=== PATIENT | male | born 1945 | race Caucasian/White ===

== ENCOUNTER 2019-08-10 13:26 | Outpatient (CLI) | payer OTHER, SELFPAY ==
--- NOTE | ~2019-08-10 | XR_ITS ---
XR lumbar spine 2-3V DATE: 08/10/2019 13:51 INDICATION: Lumbar spine fusion procedure 2 weeks ago TECHNIQUE: AP, lateral, coned lateral lumbosacral views COMPARISON: 07/24/2013 lumbar spine FINDINGS: There is mild dextro scoliosis of lumbar spine. Status post posterior and interbody spinal fusion at L4-5. The bilateral pedicle screws and rods at L 4-5 appear intact. No fracture or displacement of the hardware. Normal alignment of the lumbar spine. No fracture or bone destruction. The included lower thoracic an d lumbar pedicles are intact. There is mild degenerative disc disease at L1-2, moderately severe degenerative disease at L2-3, L3-4 . IMPRESSION: Status post posterior and interbody spinal fusion at L4-5 Multilevel degenerative disc disease Reviewed, dictated and finalized at location A.
== END 2019-08-10 13:27 | disposition home or self-care (01) ==
PROVIDERS: PCP Emergency Medicine; Visit Provider Neurological Surgery
DX: Z98.1 Arthrodesis status (principal); M51.36 Other intervertebral disc degeneration, lumbar region
CPT/HCPCS: 72100

== ENCOUNTER → 2020-07-27 09:48 | Outpatient (CLI) | payer OTHER, SELFPAY ==
--- NOTE | ~2020-07-27 | XR_ITS ---
XR clavicle RT DATE: 07/27/2020 09:58 INDICATION: Deformity TECHNIQUE: AP and angled AP views of right clavicle COMPARISON: None FINDINGS: No fracture or dislocation, periosteal reaction or bone destruction of the right clavicle i s evident. IMPRESSION: No significant abnormality of the right clavicle Reviewed, dictated and finalized at location B.
== END ==
PROVIDERS: PCP Emergency Medicine; Visit Provider Emergency Medicine
DX: M95.8 Other specified acquired deformities of musculoskeletal system (principal)
CPT/HCPCS: 73000

== ENCOUNTER → 2020-08-17 16:37 | Outpatient (CLI) | payer OTHER, SELFPAY ==
--- NOTE | ~2020-08-17 | MR_ITS ---
EXAMINATION: MR clavicle RT wo con DATE: 08/17/2020 18:04 INDICATION: Acquired deformity of the right clavicle with tender lump at the lateral right clavicle o f 6 weeks duration. TECHNIQUE: Magnetic resonance imaging (MRI) of the right clavicle was performed without intravenous c ontrast. A marker was placed over the mass. Sequences included axial T1-weighted FSE, axial T2-weigh lisa FS FSE, coronal T1-weighted FSE, coronal T2-weighted FS FSE, sagittal T1-weighted FSE and sagitta l fluid sensitive FSE STIR. Additional larger field of view coronal T1-weighted FSE including the lupe ateral clavicles was obtained. COMPARISON: Radiographs dated 07/27/2020 FINDINGS: Bone alignment is normal. Normal marrow signal throughout with no fracture or pathologic marrow repla cing process. Moderate osteoarthritis at the right acromioclavicular joint with subchondral cystic ch deni at the lateral head of the right clavicle. The marker overlies a 1.7 x 1.7 x 1.2 cm ganglion cys t which arises from the cephalad margin of the right acromioclavicular joint which likely accounts fo r the palpable abnormality of concern. Mild right glenohumeral osteoarthritis. There appears to be mo derate supraspinatus and mild subscapularis and infraspinatus tendinopathy without discrete tear alth ough assessment of the rotator cuff tendons and the normal-appearing glenoid labrum is significantly more limited than on a standard shoulder MRI due to the larger field of view as well as some motion a rtifact. No right glenohumeral joint effusion or abnormal fluid signal in the subacromial/subdeltoid bursa to suggest bursitis. Suture anchors are seen at the greater tuberosity of the left humeral head suggesting prior left-sided fusiform aneurysm suggestive the descending thoracic aorta which on the larger field of view images measures up to 4.7 cm in diameter. Rotator cuff repair. IMPRESSION: 1. Moderate right acromion clavicular osteoarthritis with 1.7 x 1.7 x 1.2 cm ganglion cyst arising fr om the cephalad aspect of the joint space which accounts for the palpable abnormality of concern. 2. Suggestion of mild to moderate tendinopathy of the right rotator cuff although assessment is more limited than a standard shoulder MRI. 3. 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 Reviewed, dictated and finalized at location A. IMPRESSION: 1. Moderate right acromion clavicular osteoarthritis with 1.7 x 1.7 x 1.2 cm ga nglion cyst arising from the cephalad aspect of the joint space which accounts for the palpable abnormality of concern. 2. Suggestion of mild to moderate tendinopathy of the right rotator cuff althou gh assessment is more limited than a standard shoulder MRI. 3. 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
== END ==
PROVIDERS: PCP Emergency Medicine; Visit Provider Emergency Medicine
DX: M95.8 Other specified acquired deformities of musculoskeletal system (principal); I71.4 Abdominal aortic aneurysm, without rupture; M19.011 Primary osteoarthritis, right shoulder
CPT/HCPCS: 73218

== ENCOUNTER 2020-10-06 07:48 | Outpatient (CLI) | payer OTHER, SELFPAY ==
--- NOTE | 2020-10-06 08:43 | ECG_ITS ---
Measurements Intervals [place] Rate: 38 P: MT: 0 QRS: -10 QRSD: 106 T: 4 QT: 439 QTc: 352 Interpretive Statements SINUS BRADYCARDIA WITH SECOND DEGREE AV BLOCK, TYPE I VOLTAGE CRITERIA FOR LVH BASELINE ARTIFACT- I, III, AVL, AVF ABNORMAL ECG Electronically Signed On 10-06-2020 9:44:52 CDT by Woo Lagunas D.O.
[2020-10-06 09:19] LABS: Basophils Percent Auto 0.3 % (0.2-1.2); Eosinophils Absolute Auto 0.1 K/mm3 (0-0.3); Eosinophils Percent Auto 1.8 % (0-4.4); Hematocrit 42.2 % (42.0-52.0); Hemoglobin 13.8 g/dL (14.0-18.0); Immature Granulocyte Absolute 0.02 K/mm3 (0.00-0.031); Immature Granulocyte Percent A 0.3 % (0-0.5); Lymphocytes Percent Auto 30.2 % (18.3-44.2); Mean Corpuscular HGB Conc 32.7 g/dl (32-36); Mean Corpuscular Hemoglobin 30.8 pg (26-34); Mean Corpuscular Volume 94.2 fl (80-100); Mean Platelet Volume 9.8 fl (7.4-10.4); Monocytes Absolute Auto 0.6 K/mm3 (0.1-0.6); Monocytes Percent Auto 9.4 % (2.6-8.5); Neutrophils Absolute Auto 3.5 K/mm3 (1.3-6.7); Platelet Count Result 233 k/mm3 (150-375); Red Blood Count 4.48 M/mm3 (4.6-6.20); Red Cell Distribution Width 12.5 % (11.5-14.5)
[2020-10-06 09:22] LABS: Add Urine Microscopic? YES; Appearance Urine Clear (Clear); Bilirubin Urine Negative (Negative); Blood Urine Negative (Negative); Color Urine Yellow (Yellow); Glucose Urine UA Negative (Negative); Ketones Urine Negative (Negative); Leukocyte Esterase Ur Negative LEU/UL (Negative); Mucus Urine Rare /lpf; Nitrate Urine Negative (Negative); Protein Urine 1+ mg/dL (Negative); RBC Urine 0-2 /hpf (0-2); Specific Grav Ur 1.021 (1.001-1.035); Urobilinogen Urine Negative mg/dL (<2.0); WBC Urine 0-3 /hpf
[2020-10-06 09:30] LABS: INR 0.9; Prothrombin Time 11.9 Seconds (11.1-14.7)
[2020-10-06 09:31] LABS: Partial Thromboplastin Time 28.6 SECONDS (22.3-36.8)
[2020-10-06 09:44] LABS: Albumin Level 4.5 g/dL (3.5-5.1); Anion Gap 8 mmol/L (8-16); Blood Urea Nitrogen 20 mg/dL (9-20); Calcium 9.8 mg/dL (8.4-10.2); Carbon Dioxide 27 mmol/L (22-30); Chloride 101 mmol/L (98-107); Estimated Glomerular Filt Rate 60; Glucose 117 mg/dL (65-110); Potassium 4.4 mmol/L (3.4-5.0); Sodium 136 mmol/L (137-145)
[2020-10-06 11:17] LABS: Urine Cotinine NEGATIVE
== END 2020-10-06 07:49 | disposition home or self-care (01) ==
LOC: ANHSURGERY 07:51
PROVIDERS: PCP Emergency Medicine; Visit Provider Orthopaedic Surgery
DX: M17.10 Unilateral primary osteoarthritis, unspecified knee (principal); Z01.818 Encounter for other preprocedural examination; I44.1 Atrioventricular block, second degree
CPT/HCPCS: 80048; 80307; 81001; 82040; 85025; 85610; 85730; 86850; 86900; 86901; 87081; 93005

== ENCOUNTER 2020-10-06 11:14 | Outpatient (CLI) | payer OTHER, SELFPAY ==
--- NOTE | ~2020-10-06 | US_ITS ---
EXAMINATION: US right upper quadrant EXAM DATE: 10/06/2020 11:36 INDICATION: K76.9 - Liver disease, unspecified. TECHNIQUE: Multiple grayscale and Doppler images of the abdomen right upper quadrant were obtained (b y a technologist who performed the scan) and subsequently reviewed. There is no prior study for nat luther. FINDINGS: The pancreatic head and body are normal in appearance. The pancreatic tail is not visualized. The l iver has normal echogenicity and contour. There are no focal liver lesions identified. There is no evidence of intrahepatic biliary duct dilation. Portal venous flow was seen in the hepatopedal, nor mal direction and has normal Doppler waveform. No right-sided hydronephrosis. Common bile duct measures 2 mm, which is normal. The gallbladder wall is normal in thickness, with ex pected amount of distention. No sonographic evidence of pericholecystic fluid. There is no cholelit hiases. Technologist performing exam reports patient did not demonstrate sonographic Draper's sign. Please note that this sign is less reliable in patients who have received pain medication. IMPRESSION: 1. Unremarkable abdominal ultrasound exam. Reviewed, dictated and finalized at location B.
== END 2020-10-06 11:15 | disposition home or self-care (01) ==
PROVIDERS: PCP Emergency Medicine; Visit Provider Emergency Medicine
DX: K76.9 Liver disease, unspecified (principal)
CPT/HCPCS: 76705

== ENCOUNTER 2020-10-13 09:00 | Outpatient (CLI) | payer OTHER, SELFPAY ==
--- NOTE | 2020-10-13 09:05 | EST_ITS ---
Patient Info Name: Jona Silva Age: 74 years : 1945 Gender: Male Ht: 70 in Wt: 220 lbs BSA: 2.25 m2 HR: 52 bpm Technical Quality: Good Exam Date: 10/13/2020 9:44 AM Exam Location: [facility] Patient Status: Outpatient Admit Date: 10/13/2020 Staff Ordering Physician: Yuan Winn DO Cook Manager: Dolly Rangel RDCS Attending Provider: YUAN WINN DO Referring Physician: Bebo GUTHRIE; Exercise Technologist: Michelle Sky RDCS Exercise Physician: Yuan Winn DO Exam Type: CA stress echo Study Info Indications R06.00 - Dyspnea, unspecified Treadmill exercise stress echocardiogram is performed. Summary 1. 1. Negative Akin exercise stress test for ischemic ST changes by ECG criteria. 2. 2. Good functional capacity, achieving 7 METs of workload. 3. 3. Underlying intermittent second degree AV block. 4. 4. Appropriate HR response to exercise. 5. 5. Appropriate HR recovery at 1 minute post exercise. 6. 6. Negative stress echocardiogram for ischemia by wall motion analysis. 7. 7. Patient informed of the above results. Stress Echo Findings Left Ventricle Appropriate increase in LV endocardial thickening with systole. Appropriate augmentation of contractility with systole. No wall motion abnormality. Left Ventricle Normal LV systolic function, no wall motion abnormality. Protocol: Akin Stress ECG Details Stage: REST Duration (min): 0 min : 48 sec Speed (mph): 0.0 Grade (%): 0 HR (bpm): 55 SBP (mmHg): 138 DBP (mmHg): 85 METS: --- Stage: REST Duration (min): 22 min : 11 sec Speed (mph): 0.0 Grade (%): 0 HR (bpm): 69 SBP (mmHg): 138 DBP (mmHg): 85 METS: --- Stage: STAGE 1 Duration (min): 1 min : 0 sec Speed (mph): 1.7 Grade (%): 10 HR (bpm): 87 SBP (mmHg): 138 DBP (mmHg): 85 METS: --- Stage: STAGE 1 Duration (min): 2 min : 0 sec Speed (mph): 1.7 Grade (%): 10 HR (bpm): 99 SBP (mmHg): 138 DBP (mmHg): 85 METS: --- Stage: STAGE 1 Duration (min): 3 min : 0 sec Speed (mph): 1.7 Grade (%): 10 HR (bpm): 103 SBP (mmHg): 178 DBP (mmHg): 82 METS: --- Stage: STAGE 2 Duration (min): 1 min : 0 sec Speed (mph): 2.5 Grade (%): 12 HR (bpm): 113 SBP (mmHg): 178 DBP (mmHg): 82 METS: --- Stage: STAGE 2 Duration (min): 2 min : 0 sec Speed (mph): 2.5 Grade (%): 12 HR (bpm): 122 SBP (mmHg): 186 DBP (mmHg): 86 METS: --- Stage: STAGE 2 Duration (min): 3 min : 0 sec Speed (mph): 2.5 Grade (%): 12 HR (bpm): 132 SBP (mmHg): 186 DBP (mmHg): 86 METS: --- Stage: STAGE 3 Duration (min): 0 min : 1 sec Speed (mph): 0.0 Grade (%): 0 HR (bpm): 132 SBP (mmHg): 186 DBP (mmHg): 86 METS: --- Stage: RECOVERY Duration (min): 0 min : 58 sec Speed (mph): 0.0 Grade (%): 0 HR (bpm): 76 SBP (mmHg): 166 DBP (mmHg): 80 METS: --- Stage: REC
== END 2020-10-13 09:01 | disposition home or self-care (01) ==
LOC: ANHCARD 09:01
PROVIDERS: PCP Emergency Medicine; Visit Provider Internal Medicine Cardiovascular Disease
DX: R06.00 Dyspnea, unspecified (principal)
CPT/HCPCS: 93351

== ENCOUNTER 2020-10-18 01:12 | Day surgery (SDC) | payer OTHER, SELFPAY ==
[2020-10-06 08:19] VITALS: BP 154/80; PULSE 58; RESP 20; TEMP 36.3; O2SAT 97; BMI 31.3
[2020-10-18] VITALS (20 sets, daily range): BP systolic 119–178; BP diastolic 60–95; PULSE 56–84; RESP 11–20; TEMP 36–36.6; O2SAT 96–100
--- NOTE | ~2020-10-18 | XR_ITS ---
EXAMINATION: XR knee RT 2V DATE: 10/18/2020 10:10 INDICATION: Right knee arthroplasty. Postop. TECHNIQUE: 2 views of right knee were obtained. COMPARISON: Right knee radiographs 10/06/2020 FINDINGS: There is a total right knee arthroplasty without patellar resurfacing in near-anatomic alig nment. No fracture. There is gas in the knee joint and soft tissues, consistent with recent surgery. Anterior skin césar are noted. IMPRESSION: 1. Total right knee arthroplasty in near-anatomic alignment. Reviewed, dictated and finalized at location A.
[2020-10-18] MEDS: ACETAMINOPHEN 500 MG TABLET 1000 MG PO (06:55)
[2020-10-18] MEDS: LACTATED RINGERS 1,000 ML 30 ML IV CONT ×2 (07:00→09:57)
[2020-10-18] MEDS: TRANEXAMIC ACID 1,000MG/ISO100 1,000 MG/100 ML BAG 200 MG IVPB (07:03)
--- NOTE | 2020-10-18 07:15 | WPDANESEPPF ---
Anes - Initial Pre Proc Eval Procedure: Operation Date: 10/18/20 07:30 Proposed Procedures p Right Total Knee Arthroplasty - Reggie Encinas MD Date/Time: 10/18/20 07:15 Surgeon: Reggie Encinas MD Pre Op Diagnosis: Right Knee OA Patient Data Age: 74 Gender: M Height: 1.78 m Weight: 99.1 kg Last Vital Signs Temp 36.3 C L 10/06/20 08:19 Pulse 58 L 10/06/20 08:19 Resp 20 10/06/20 08:19 BP 154/80 H 10/06/20 08:19 Pulse Ox 97 10/06/20 08:19 Allergies Allergy/AdvReac Type Severity Reaction Status Date / Time No Known Allergies Allergy Verified 10/11/20 10:40 Home Medications Medication Instructions Recorded Confirmed Type sildenafil 50 mg tablet 50 mg PO DAILY PRN #30 tablet 07/27/20 10/11/20 Rx tadalafil 20 mg tablet 20 mg PO DAILY PRN #40 tablet 07/27/20 10/11/20 Rx chlorhexidine gluconate 4 % 1 applic TOPICAL ONCE #237 ml 08/03/20 10/18/20 Rx topical liquid levothyroxine 125 mcg PO QAM 10/06/20 10/18/20 History losartan 50 mg PO QAM 10/06/20 10/18/20 History rosuvastatin 20 mg HS 10/06/20 10/18/20 History triamterene-hydrochlorothiazid 1 cap PO DAILY 10/06/20 10/18/20 History turmeric root extract 1,000 mg PO DAILY 10/06/20 10/18/20 History aspirin 81 mg tablet,delayed 81 mg PO .Every other day tablet 10/11/20 10/18/20 History release mecobalamin (vitamin B12) 1,000 1,000 mcg PO DAILY 10/11/20 10/18/20 History mcg disintegrating tablet,sublingual Patient hx anesthesia problems: none Family hx anesthesia problems: none PMFSH Past Medical History Medical History Back pain Bladder cancer Degenerative joint disease of knee Diabetes mellitus HTN (hypertension) Hyperglycemia Hypothyroidism (acquired) Lumbar stenosis with neurogenic claudication Right knee pain Thoracic aortic aneurysm Urinary and fecal incontinence Vitamin B 12 deficiency Family History Family History Father Family history of congestive heart failure, Onset Age: 85 Other Family history of cardiovascular disease Hypertension Social History Social History Smoking packs per day: 2 Smoking cigarettes per day: 40.0 Years smoked: 10 Smoking pack-years: 20.00 Smoking status: Former smoker Smoking end date: 03/11/87 Additional smoking assessment comments: QUIT 1985 Alcohol intake: current Drinks per week: 3 Substance use: never Substance use type: does not use Living arrangements: with family Spiritual care concerns: No Anes - Eval Final PreProcedure Day of Procedure 10/18/20 07:15 Patient weight: obese Heart: regular rate and rhythm Lungs: decreased breath sounds Airway: Mallampati scale class II Neurological: alert and oriented Last oral intake: >/= 8 hours ASA classification: III Emergent: no Anesthetic plan: proceed Anesthesia type and monitoring: general LMA and standard monitoring Informed Consent: The patient's anesthetic plan and its attendant risks and benefits were discussed with the patient/family/POA. Questions were solicited and answers provided to the satisfaction of the patient/family/POA.
--- NOTE | 2020-10-18 07:21 | WPDHPUPDATE1 ---
History and Physical Update Update Date/Time: 10/18/20 07:21 History and Physical has been reviewed, including an updated exam of the patient. There are NO changes in the patient's condition. Risks, benefits, and alternatives have been discussed and questions answered. Patient agrees to proceed with procedure.
--- NOTE | 2020-10-18 07:33 | WPDANESPNB ---
Anes - Peripheral Nerve Block Date/Time: 10/18/20 07:33 I have discussed with the patient/family/POA the placement of a peripheral nerve block for post-operative pain management, including associated risks, benefits, complications, and side effects. Alternative methods of post-operative analgesia were detailed. Questions were solicited and answers provided to the satisfaction of the patient/family/POA. Time-Out: A pre-procedural Time-Out was completed immediately before starting the procedure and confirmed: Patient Identification, Site, Procedure, Patient Position and the Availability of Requisite Equipment. Clinical Indications: Acute post-operative pain management requested by the operative surgeon. Nerve Block Insertion Note Anes-nerve block: femoral right Patient position: supine Skin prep: chlorhexidine Needle: 22 gauge, stimulating, insulated echogenic needle. Needle length: 80 mm Technique: nerve stimulation lost at (mA) (0.27) Technique comment: Mid2mg,[id number] Injectate: bupivacaine 0.25% with epi 5 mcg/ml (30ml) Observations: tolerated well Complications: none Procedure start time:: 726 Procedure end time:: 731
--- NOTE | 2020-10-18 07:43 | SUR.PREOP ---
0710-SUMMONED TO ROOM BY , PT DEVELOPED NAUSEA AFTER STARTING TRANSEXAMIC ACID. MEDICATION STOPPED, LR RATE INCREASED WITH IMPROVEMENT IN NAUSEA. 0725-BI TRI OPERATOR AND GAS SCRUBBER OPERATOR AWARE OF ABOVE AND WILL RESTART/INFUSE IN OR.
[2020-10-18] MEDS: ceFAZolin 2 GM/D5W 50 ML 2 GM/50 ML BAG IVPB ×2 (07:48→16:05)
--- NOTE | 2020-10-18 07:52 | SUR.PREOP ---
0700-PT HAS SEAT COVER CUTTER IN PLACE SINCE 10/11/2020-DR. WHITTINGTON AWARE AND WILL CONTINUE ON TO OR.
[2020-10-18] MEDS: GENTAMICIN BONE CEMENT REFOBACIN 1 EACH TOPICAL (08:41)
--- NOTE | 2020-10-18 09:50 | W.PM.PROC2 ---
Procedure Note - Detailed Date of Procedure 10/18/20 Pre-op Diagnosis Right Knee OA Post-op Diagnosis same Procedure Performed R TKA Surgeon Reggie Encinas MD Anesthesia general Description of Procedure THE RIGHT KNEE WAS PREPPED AND DRAPED IN THE STERILE FASHION. THERE WAS A 10 DEGREE FLEXION CONTRACTURE. A MIDLINE SKIN INCISION WAS MADE. A MEDIAL PARAPATELLAR ARTHROTOMY WAS MADE. THE PATELLA WAS EVERTED. THERE WAS TRICOMPARTMENT DJD. THERE WAS MINIMAL PATELLA DJD. AN INTRAMEDULLARY KARL WAS PLACED IN THE FEMUR. A DISTAL FEMORAL CUT WAS MADE IN 5 DEGREES OF VALGUS REMOVING APPROXIMATELY 9 MM OF BONE FROM THE DISTAL FEMUR. THE FEMUR WAS SIZED TO 70. A 70 FEMORAL CUTTING BLOCK WAS PLACED IN 3 DEGREES OF EXTERNAL ROTATION AND IN ALIGNMENT WITH ELIECER'S LINE AND THE TRANSEPICONDYLAR AXIS. ANTERIOR POSTERIOR AND CHAMFER CUTS WERE MADE. THE CUTS WERE EXCELLENT. NEXT AN INTRAMEDULLARY CUTTING GUIDE WAS PLACED IN THE TIBIA. A TRANS TIBIAL CUT WAS MADE ALONG THE LONG AXIS OF THE TIBIA. APPROXIMATELY 10 MM OF BONE WAS REMOVED FROM THE HIGH SIDE OF THE TIBIA. THE TIBIA WAS THEN PLANED TO A SMOOTH SURFACE. POSTERIOR FEMORAL OSTEOPHYTES WERE REMOVED FROM THE FEMORAL CONDYLES. A 79 TIBIAL TRIAL WAS PLACED IN ALIGNMENT WITH THE 1/3 MEDIAL ASPECT OF THE TIBIAL TUBERCLE. THEN A 70 FEMORAL TRIAL COMPONENT WAS PLACED. BOTH HAD EXCELLENT FITS. EVENTUALLY A 10 MM CR POLYETHYLENE TRIAL COMPONENT WAS PLACED. THE KNEE WAS TAKEN THROUGH A RANGE OF MOTION. THE KNEE CAME OUT TO FULL EXTENSION. THERE WAS NO ABNORMAL TILT TO THE PATELLA. THERE WAS GOOD A/P AND VARUS/VALGUS STABILITY. THERE WAS NO EXCESSIVE ROLL BACK WITH FLEXION. THE TRIAL COMPONENTS WERE REMOVED. THEN A 70 FEMORAL COMPONENT AND 79 TIBIAL COMPONENT WITH A 10 CR POLYETHYLENE COMPONENT WERE CEMENTED INTO PLACE. ONCE THE CEMENT WAS HARD THE KNEE WAS TAKEN THROUGH A ROM AGAIN AND FOUND TO BE STABLE WITH NO PATELLA TILT NO EXCESSIVE ROLL BACK WITH FLEXION AND GOOD STABILITY WITH COMPLETE AND FULL EXTENSION. THE KNEE WAS IRRIGATED WITH STERILE BETADINE AND WATER FOR ABOUT 3 MINUTES. THE BLEEDERS WERE CAUTERIZED. THE ARTHROTOMY WAS REPAIRED WITH NUMBER 1 VICRYL. THE SUB CUTANEOUS LAYER WITH 2-0 VICRYL AND THE SKIN WITH AMINATA. THE WOUND WAS WASHED AND A STERILE DRESSING WAS APPLIED. PATIENT WAS EXTUBATED. Estimated Blood Loss -150.0 Pathology none sent Complications No immediate complications Condition stable Disposition PACU
[2020-10-18] MEDS: fentaNYL CITRATE INJ (*CRX) 100 MCG/2 ML VIAL 25 MCG IV PUSH ×8 (10:17→10:52)
[2020-10-18] MEDS: HYDROmorphone HCL INJ (*CRX) 1 MG/ML SYR IV PUSH (11:15)
[2020-10-18] MEDS: oxyCODONE HCL (*CRX) 5 MG TAB IR 10 MG PO ×3 (12:12→20:23)
[2020-10-18] MEDS: SODIUM CHLORIDE 0.9% IV 1,000 ML 125 ML IV CONT (12:14)
--- NOTE | 2020-10-18 12:30 | WPDCN ---
Assessment and Plan Assessment and plan (1) Arthritis of right knee: Code(s): M17.11 - Unilateral primary osteoarthritis, right knee Status: Acute Assessment and Plan: Postoperative day 0 status post right total knee replacement. Wound care and pain control will be deferred to Dr. Reid as well as DVT prophylaxis. (2) Hypertension: Code(s): I10 - Essential (primary) hypertension Status: Acute Assessment and Plan: Blood pressures were reviewed and they have been running a bit high postoperatively. Resume antihypertensives and monitor closely. (3) Hypothyroidism (acquired): Code(s): E03.9 - Hypothyroidism, unspecified Status: Acute Assessment and Plan: Continue levothyroxine. (4) Hyperlipidemia: Code(s): E78.5 - Hyperlipidemia, unspecified Status: Acute Assessment and Plan: Continue statin check LFTs in a.m. Additional Plan Thank you for allowing us to participate in this patient's care. Please do not hesitate to contact us with any questions. Supervising physician for this medical consultation is Dr. Diego Hilton. HPI Data of Consult Date/Time: 10/18/20 12:30 Requesting Physician: Reggie Encinas MD Primary Care Provider: Yomi Reddy MD Consult Narrative Narrative: This is a very pleasant 74-year-old male with arthritis, hypertension, hyperlipidemia, hypothyroidism, and prediabetes whom the hospitalist service has been consulted for management of his medical conditions postoperatively. He has had longstanding pain in his right knee (although he tells me that his arthritis is worse than his left) which has not been amenable to conservative outpatient treatment thus he elected for replacement today. His surgery was performed under general anesthesia with no immediate complications documented an estimated blood loss of 150 mL. Patient has been doing okay postoperatively but has had difficulties getting his pain under control. He currently rates his pain 7/10 and describes it as a constant aching discomfort. He has been up to the chair and did ambulate to the bathroom once with a walker without issue. He denies paresthesias, skin color, and temperature changes distal to the surgical site. He also denies postoperative fever, chills, chest pain, shortness of breath, nausea, and vomiting. Review of Systems Review of Systems: Twelve systems were reviewed with pertinent positives and negatives as per HPI. No fever, chills, or sweats. No recent cold or flu symptoms. Occasional issues starting his urine stream but no history of urinary retention. He has urinated without issue postoperatively. No history of venous thromboembolism. Except as documented, all other systems were reviewed and are negative. [facility] Past Medical History Medical History (Updated 10/18/20 @ 23:46 by Priya Galvan PA-C) Back pain Bladder cancer Degenerative joint disease of knee Hyperlipidemia Hypertension Hypothyroidism (acquired) Lumbar stenosis with neurogenic claudication Pre-diabetes Hemoglobin A1c was 6.2% on 07/21/2020. Right knee pain Thoracic aortic aneurysm Vitamin B 12 deficiency Surgical History Surgical History (Updated 10/18/20 @ 23:43 by Priya Galvan PA-C) History of laminectomy History of lumbar fusion History of repair of rotator cuff History of right knee joint replacement (10/18/20) History of ventral hernia repair Family History Family History Father Family history of congestive heart failure, Onset Age: 85 Hypertension Mother Family history of cardiovascular disease Social History Social History (Updated 10/18/20 @ 23:45 by Priya Galvan PA-C) Social History: Surrogate decision maker: Marie Silva, . Code status: Full code. Smoking packs per day: 2 Smoking cigarettes pe
--- NOTE | 2020-10-18 14:11 | ADMGEN ---
This patient, Jona Silva, was admitted to 2 Medical Room 240-. Patient/family oriented to hospital policies and general routines including ID bracelet, bed and alarms, visiting hours, pain management, procedures, bathroom and other care routines, personal items, smoking policy, room service/diet, and visiting hours. Information on how to activate the Rapid Response Team has been discussed. Patient/Family are encouraged to report perceived risks to care and to ask questions if they do not understand what they are told or what they should do.
[2020-10-18] MEDS: DOCUSATE SODIUM 100 MG CAPSULE PO (16:06)
[2020-10-18 16:29] LABS: Alanine Aminotransferase 29 U/L (4-50); Albumin Level 4.5 g/dL (3.5-5.1); Alkaline Phosphatase 51 U/L (38-126); Aspartate Amino Transferase 34 U/L (17-59); Bilirubin,Total 0.6 mg/dL (0.2-1.3)
[2020-10-18] MEDS: ROSUVASTATIN 10 MG TABLET 20 MG BY MOUTH (20:25)
[2020-10-18] MEDS: FAMOTIDINE 20 MG TABLET PO (21:52)
[2020-10-18] MEDS: oxyCODONE/ACETAMINOPHEN (*CRX) 5-325 MG TABLET 1 TABLET PO (21:55)
[2020-10-19] VITALS (9 sets, daily range): BP systolic 131–166; BP diastolic 61–84; PULSE 67–82; RESP 16–20; TEMP 36.7–37; O2SAT 96–100
[2020-10-19] MEDS: diphenhydrAMINE HCl INJ 50 MG/ML VIAL 25 MG IV PUSH (00:54)
[2020-10-19] MEDS: oxyCODONE HCL (*CRX) 5 MG TAB IR 10 MG PO ×2 (00:56→13:45)
[2020-10-19] MEDS: ceFAZolin 2 GM/D5W 50 ML 2 GM/50 ML BAG IVPB ×2 (00:58→09:38)
[2020-10-19 05:44] LABS: Basophils Percent Auto 0.2 % (0.2-1.2); Hematocrit 37.7 % (42.0-52.0); Hemoglobin 12.2 g/dL (14.0-18.0); Immature Granulocyte Absolute 0.05 K/mm3 (0.00-0.031); Immature Granulocyte Percent A 0.4 % (0-0.5); Lymphocytes Absolute Auto 1.29 K/mm3 (0.9-3.2); Lymphocytes Percent Auto 10.4 % (18.3-44.2); Mean Corpuscular HGB Conc 32.4 g/dl (32-36); Mean Corpuscular Hemoglobin 30.9 pg (26-34); Mean Corpuscular Volume 95.4 fl (80-100); Mean Platelet Volume 10.1 fl (7.4-10.4); Monocytes Absolute Auto 1.5 K/mm3 (0.1-0.6); Monocytes Percent Auto 12.4 % (2.6-8.5); Neutrophils Absolute Auto 9.5 K/mm3 (1.3-6.7); Neutrophils Percent Auto 76.6 % (45.5-73.1); Platelet Count Result 275 k/mm3 (150-375); Red Blood Count 3.95 M/mm3 (4.6-6.20); Red Cell Distribution Width 12.8 % (11.5-14.5); White Blood Count 12.4 K/mm3 (4.5-10.0)
[2020-10-19 05:47] LABS: Anion Gap 8 mmol/L (8-16); Blood Urea Nitrogen 17 mg/dL (9-20); Calcium 9.3 mg/dL (8.4-10.2); Carbon Dioxide 25 mmol/L (22-30); Chloride 101 mmol/L (98-107); Estimated CRCL calculation 64 ml/min; Estimated Glomerular Filt Rate > 60; Glucose 146 mg/dL (65-110); Potassium 4.5 mmol/L (3.4-5.0); Sodium 134 mmol/L (137-145)
[2020-10-19] MEDS: oxyCODONE/ACETAMINOPHEN (*CRX) 5-325 MG TABLET 1 TABLET PO ×3 (06:17→16:53)
[2020-10-19] MEDS: LEVOTHYROXINE SODIUM 125 MCG TABLET PO (06:17)
[2020-10-19] MEDS: FAMOTIDINE 20 MG TABLET PO (09:38)
[2020-10-19] MEDS: CYANOCOBALAMIN 1,000 MCG TABLET 1000 MCG PO (09:38)
[2020-10-19] MEDS: DOCUSATE SODIUM 100 MG CAPSULE PO ×2 (09:38→16:55)
[2020-10-19] MEDS: ASPIRIN 81 MG ENTERIC TABLET PO (09:38)
[2020-10-19] MEDS: TRIAMTERENE 37.5 MG/HCTZ 25 MG (MAXZIDE) TABLET 1 TAB PO (09:38)
[2020-10-19] MEDS: LOSARTAN POTASSIUM 50 MG TABLET PO (09:38)
--- NOTE | 2020-10-19 10:01 | P.PNAN_ITS ---
Anes - Prog Note Post-Op Date/Time: 10/19/20 10:01 Cardiovascular status: normal Respiratory status: normal Airway patency: baseline Mental status: baseline Post-Op hydration status: normal Vital Signs: Last Vital Signs Temp 36.9 C 10/19/20 05:26 Pulse 78 10/19/20 05:26 Resp 18 10/19/20 05:26 BP 131/62 10/19/20 05:26 Pulse Ox 98 10/19/20 05:26 Pain Score (VAS): 0/10 I/O: Intake & Output 10/18/20 10/19/20 10/19/20 23:59 07:59 15:59 Intake Total 800 350 Output Total 450 1450 Balance 350 -1100 Laboratory Tests 10/19/20 05:07 10/19/20 05:07 10/18/20 10/19/20 10/19/20 15:04 05:07 05:07 WBC 12.4 H RBC 3.95 L Hgb 12.2 L Hct 37.7 L MCV 95.4 MCH 30.9 MCHC 32.4 RDW 12.8 Plt Count 275 MPV 10.1 Immature Gran % (Auto) 0.4 Neut % (Auto) 76.6 H Lymph % (Auto) 10.4 L [place] % (Auto) 12.4 H Eos % (Auto) 0.0 Baso % (Auto) 0.2 Lymph # (Auto) 1.29 [place] # (Auto) 1.5 H Eos # (Auto) 0.0 Baso # (Auto) 0.0 Abs Immat Gran (auto) 0.05 H Absolute Neuts (auto) 9.5 H Absolute Nucleated RBC 0.0 Nucleated RBC % 0.0 Sodium 134 L Potassium 4.5 Chloride 101 Carbon Dioxide 25 Anion Gap 8 BUN 17 Creatinine 1.10 Estim Creat Clear Calc 64 Estimated GFR > 60 Glucose 146 H Calcium 9.3 Total Bilirubin 0.6 Direct Bilirubin 0.0 AST 34 ALT 29 Alkaline Phosphatase 51 Total Protein 7.0 Albumin 4.5 Post-procedural complaints: none Patient Feedback: Patient satisfied with anesthetic care.
--- NOTE | 2020-10-19 13:42 | PM.IMPN ---
Progress Note: A&P Assessment and Plan (1) Arthritis of right knee: Code(s): M17.11 - Unilateral primary osteoarthritis, right knee Status: Acute Assessment and Plan: Postoperative day 1 status post right total knee replacement. Wound care and pain control will be deferred to Dr. Encinas as well as DVT prophylaxis. (2) Hypertension: Code(s): I10 - Essential (primary) hypertension Status: Acute Assessment and Plan: Blood pressures were reviewed and they have been running a bit high postoperatively. Resume antihypertensives and monitor closely. (3) Hypothyroidism (acquired): Code(s): E03.9 - Hypothyroidism, unspecified Status: Acute Assessment and Plan: Continue levothyroxine. (4) Hyperlipidemia: Code(s): E78.5 - Hyperlipidemia, unspecified Status: Acute Assessment and Plan: Continue statin Subjective Date/time seen: 10/19/20 12:55 Interval history: Patient is a 74 year old male with a past medical history of hypothyroidism, HTN, and HLD that is here for w right knee replacement. Patient has no complaints today and stated that he feels fine and is ready to go. Patient was up in the chair upon examination. Patient denied chest pain, shortness of breath, nausea, vomiting, abdominal pain, fevers, sweats or chills. Patient knee is a bit swollen and there is a small spot of blood on his bandage. Review of Systems Review of Systems: All systems reviewed & are unremarkable except as noted in HPI and below Exam Const: General: cooperative, healthy appearing, comfortable, no acute distress, well developed, alert, awake and tired appearing Nutritional Appearance: well nourished Orientation/consciousness: patient oriented x3 Limitations: no limitations HENMT: Head: normal to inspection Ears: hearing grossly normal bilaterally General nose exam: Normal external nose present Mouth: Yes Normal oral and palatal mucosa present, Yes lip normal and Yes tongue normal Teeth and gingiva: abnormal tooth and associated gingiva and poor dentition Eyes: General: appearance normal, both eyes and all related structures Neck: Neck: normal visual inspection, full ROM, trachea midline and supple Chest: Chest palpation & inspection: normal inspection of the chest Resp: Effort & Inspection: normal respiratory effort and able to speak in complete sentences Auscultation: clear to auscultation bilaterally Cardio: Jugular venous distension: no JVD Rate: regular rate Rhythm: regular rhythm Heart sounds: S1 normal heart sound present and S2 normal heart sound present Peripheral pulses: Peripheral pulses 2+ throughout GI: Inspection: normal to inspection GI Palp: Yes Soft to palpation and No Tenderness to palpation present (GI) Auscultation: normal bowel sounds Skin: General skin exam: normal color and no rashes or lesions noted Lesions: no lesions Rashes: no rashes Trauma: no lacerations or abrasions Wounds: no wounds Hair: normal Nails: normal Neuro: General: oriented to person, oriented to place, oriented to time, patient oriented x3, tone normal, moves all extremities, Normal light touch and pain sensation and CN's II-XI intact bilaterally Cranial nerves: Yes CN's II-XII intact bilaterally and Yes Bilaterally intact EOM present Speech: normal speech Gait exam (Neuro): Normal gait present Motor exam (neuro): 5/5 motor strength present throughout Extrem: General: normal to inspection, full ROM and capillary refill normal Right upper extremity: normal to inspection, full ROM and normal capillary refill Left upper extremity: normal to inspection, full ROM and normal capillary refill Right lower extremity: normal to inspection, full ROM, normal capillary refill and edema Details: pitting and 2+ Left lower extremity: normal to inspection, full ROM, normal capillary refill and edema Details: pitting and 1+ Psych: Appearance: grossly normal Mental St
--- NOTE | 2020-10-19 15:07 | PCPTNOTE ---
Attempted to see patient for PT, however patient declined. Patient reported he feels he's good and is waiting to get out of here.
--- NOTE | 2020-10-19 15:45 | PM.PNORT ---
Progress Note: A&P Additional Plan POD 1 DOING WELL. HE HAS PASSED PT. I SPOKE TO DR EUCEDA REGARDING HIS CARDIAC STATUS. HE WILL SEE DR EUCEDA AN OUTPATIENT AND F/U IN 3 WEEKS. Subjective Subjective Date/Time Seen: 10/19/20 15:45 POD 1 DOING WELL. NO SOB NO CHEST PAIN, NO CALF PAIN Exam Extrem: Other: VSS AFEBRILE DRESSING DRY NV INTACT NEG HOMANS SIGN Objective Data Vital Signs Vital Signs: Vital Signs - 24 hr 10/18/20 16:00 10/18/20 17:26 10/18/20 20:00 Temperature 36.3 C L Pulse Rate 66 73 84 Respiratory Rate 18 Blood Pressure 144/77 H Pulse Oximetry 98 10/18/20 21:26 10/19/20 00:00 10/19/20 01:14 Temperature 36.2 C L 36.7 C Pulse Rate 62 77 82 Respiratory Rate 18 20 Blood Pressure 170/60 H 166/84 H Pulse Oximetry 99 100 10/19/20 04:00 10/19/20 05:26 10/19/20 08:00 Temperature 36.9 C Pulse Rate 74 78 80 Respiratory Rate 18 Blood Pressure 131/62 Pulse Oximetry 98 10/19/20 09:26 10/19/20 12:00 10/19/20 13:26 Temperature 36.9 C 37.0 C Pulse Rate 72 77 67 Respiratory Rate 18 16 Blood Pressure 141/63 H 144/61 H Pulse Oximetry 96 96 Intake/Output Intake/Output: Intake & Output 10/16/20 10/17/20 10/18/20 10/19/20 23:59 23:59 23:59 23:59 Intake Total 1710 710 Output Total 450 1450 Balance 1260 -740 Meds/Results Medications: Active Medications Generic Name Dose Route Start Last Admin Trade Name Freq PRN Reason Stop Dose Admin Acetaminophen 1,000 mg 10/18/20 11:41 Acetaminophen 500 Mg Tablet PO Q6H PRN Pain Rated 1-3 Aspirin 81 mg 10/19/20 09:00 10/19/20 09:38 Aspirin 81 Mg Enteric Tablet PO 81 mg Q48H SHANTA Administration Cyanocobalamin 1,000 mcg 10/19/20 09:00 10/19/20 09:38 Cyanocobalamin 1,000 Mcg Tablet PO 1,000 mcg DAILY SHANTA Administration Diazepam 5 mg 10/18/20 11:41 Diazepam (*Crx) 5 Mg Tablet PO Q8H PRN Spasms Diphenhydramine HCl 25 mg 10/18/20 11:41 10/19/20 00:54 Diphenhydramine Hcl Inj 50 Mg/Ml Vial IV PUSH 25 mg Q6H PRN Administration Itching Docusate Sodium 100 mg 10/18/20 17:00 10/19/20 09:38 Docusate Sodium 100 Mg Capsule PO 100 mg BID SHANTA Administration Famotidine 20 mg 10/18/20 21:00 10/19/20 09:38 Famotidine 20 Mg Tablet PO 20 mg Q12HR SHANTA Administration Levothyroxine Sodium 125 mcg 10/19/20 06:30 10/19/20 06:17 Levothyroxine Sodium 125 Mcg Tablet PO 125 mcg DAILY@0630 SHANTA Administration Losartan Potassium 50 mg 10/19/20 09:00 10/19/20 09:38 Losartan Potassium 50 Mg Tablet PO 50 mg QAM SHANTA Administration Naloxone HCl 0.1 mg 10/18/20 11:41 Naloxone Hcl 0.4 Mg/Ml Vial IV PUSH Q2M PRN Opiate Reversal Ondansetron HCl 4 mg 10/18/20 11:41 Ondansetron Inj 4 Mg/2 Ml Vial IV PUSH Q4H PRN Nausea And Vomiting Oxycodone HCl 10 mg 10/18/20 11:41 10/19/20 13:45 Oxycodone Hcl (*Crx) 5 Mg Tab Ir PO 10 mg Q4H PRN Administration Pain Rated 7-10 Oxycodone/Acetaminophen 1 tablet 10/18/20 11:41 10/19/20 10:34 Oxycodone/Acetaminophen (*Crx) 5-325 Mg Tablet PO 1 tablet Q4H PRN Administration Pain Rated 4-6 Rosuvastatin Calcium 20 mg 10/18/20 21:00 10/18/20 20:25 Rosuvastatin 10 Mg Tablet BY MOUTH 20 mg HS SHANTA Administration Triamterene/Hydrochlorothiazide 1 tab 10/19/20 09:00 10/19/20 09:38 Triamterene 37.5 Mg/Hctz 25 Mg (Maxzide) Tablet PO 1 tab DAILY SHANTA Administration Radiology Results: ITS Impressions Knee X-Ray 10/18/20 10:16 IMPRESSION: 1. Total right knee arthroplasty in near-anatomic alignment. Labs Labs: Laboratory Results - last 24 hr 10/18/20 10/19/20 10/19/20 15:04 05:07 05:07 WBC 12.4 H RBC 3.95 L Hgb 12.2 L Hct 37.7 L MCV 95.4 MCH 30.9 MCHC 32.4 RDW 12.8 Plt Count 275 MPV 10.1 Immature Gran % (Auto) 0.4 Neut % (Auto) 76.6 H Lymph % (Auto) 10.4 L Gove % (Au
--- NOTE | 2020-10-19 16:02 | PM.DS ---
DS: Admitting Diagnosis Admitting Diagnosis R KNEE DJD DS: Discharge Diagnosis Discharge Diagnosis (1) Arthritis of right knee: Code(s): M17.11 - Unilateral primary osteoarthritis, right knee Status: Acute (2) Aftercare following knee joint replacement surgery: Code(s): Z47.1 - Aftercare following joint replacement surgery; Z96.659 - Presence of unspecified artificial knee joint Status: Acute DS: Summary Hospital Course Reason for hospitalization: R TKA Hospital Course: PATIENT UNDERWENT R TKA AND DID VERY WELL. HE WAS ADMITTED TO TELEMETRY. MEDICINE WAS CONSULTED. HE HAD GOOD PO INTAKE. HIS PAIN WAS WELL CONTROLLED. HE HAD NO COMPLICATIONS POSTOP. HE WAS DOING WELL WITH PT AND PAIN WAS WELL CONTROLLED. WE WAS STABLE FOR DISCHARGE Status at Discharge Cognitive/behavioral status at discharge: STABLE Functional status at discharge: uses cane/walker Overall status at discharge: patient is not back to baseline Time Spent with Patient Time attestation: Total time spent providing and/or coordinating discharge services: Time spent: Less than 30 minutes DS: Data Data Completed and Pending Labs on day of discharge: Labs from last 24 hours 10/19/20 10/19/20 10/18/20 05:07 05:07 15:04 WBC 12.4 H RBC 3.95 L Hgb 12.2 L Hct 37.7 L MCV 95.4 MCH 30.9 MCHC 32.4 RDW 12.8 Plt Count 275 MPV 10.1 Immature Gran % (Auto) 0.4 Neut % (Auto) 76.6 H Lymph % (Auto) 10.4 L [place] % (Auto) 12.4 H Eos % (Auto) 0.0 Baso % (Auto) 0.2 Lymph # (Auto) 1.29 [place] # (Auto) 1.5 H Eos # (Auto) 0.0 Baso # (Auto) 0.0 Abs Immat Gran (auto) 0.05 H Absolute Neuts (auto) 9.5 H Absolute Nucleated RBC 0.0 Nucleated RBC % 0.0 Sodium 134 L Potassium 4.5 Chloride 101 Carbon Dioxide 25 Anion Gap 8 BUN 17 Creatinine 1.10 Estim Creat Clear Calc 64 Estimated GFR > 60 Glucose 146 H Calcium 9.3 Total Bilirubin 0.6 Direct Bilirubin 0.0 AST 34 ALT 29 Alkaline Phosphatase 51 Total Protein 7.0 Albumin 4.5 Discharge Plan Discharge Patient Disposition: Home Health Service Discharge Instructions: Per Care Coordination, patient to discharge with [facility] for PT/OT and mcfp services.([phone]). Post Op Total Knee Replacement Instructions Dr. Reggie Encinas [phone] ? Your dressing will be changed prior to your discharge. You will be sent home with one additional dressing to be changed in 5 days by the home health RN. Your césar will be removed on the 14th day after surgery and steri-strips will be placed. ? You may shower with your dressing but do not submerge in a bath tub. ? Do not drive or operate machinery until you are released by Dr. Encinas. ? Do not walk without a walker for any reason until you are released by Dr. Encinas. ? Continue to use your ice machine. Please use a towel or pillow case to protect your skin before applying your ice machine. ? Do NOT place a pillow under your knee. You may use a pillow from the calf down if needed. ? You may begin use of your CPM machine at home if you have been given one pre-operatively. DO NOT USE WHILE YOU ARE SLEEPING. ? Your follow up appointment is indicated in your discharge instructions. ? Your medications have been sent to your pharmacy. ? Please contact our office with any questions/concerns regarding your knee at [phone]. Patient Instructions: Antibiotic Form Stand Alone Forms: General Discharge Information Follow-up/Referrals: Reggie Encinas MD [Physician] - Keep Reg. Scheduled Appt. Discharge Medications: New oxycodone-acetaminophen [Percocet] 7.5-325 mg tablet 1 tablet PO Q6H PRN (Reason: pain) Qty: 60 RF: 0 aspirin 325 mg tablet,delayed release (DR/EC) 325 mg PO DAILY Qty: 30 RF: 0 Continued mecobalamin (vitamin B12) 1,000 mcg tablet,disintegrating 1,000 mcg PO DAILY RF
== END 2020-10-19 17:20 | disposition home health service (06) ==
LOC: ANHSURGERY 06:01 → ANH2MED 11:50
PROVIDERS: Physician Assistant; PCP Emergency Medicine; Visit Provider Orthopaedic Surgery
PROC: (CPT 27447; principal; 2020-10-18 07:30)
DX: M17.11 Unilateral primary osteoarthritis, right knee (principal); G89.18 Other acute postprocedural pain; I10 Essential (primary) hypertension; E03.9 Hypothyroidism, unspecified; E78.5 Hyperlipidemia, unspecified; E11.9 Type 2 diabetes mellitus without complications; E53.8 Deficiency of other specified B group vitamins; I71.2 Thoracic aortic aneurysm, without rupture; M48.062 Spinal stenosis, lumbar region with neurogenic claudication; Z85.51 Personal history of malignant neoplasm of bladder; Z79.82 Long term (current) use of aspirin; Z87.891 Personal history of nicotine dependence; E66.9 Obesity, unspecified; Z68.31 Body mass index [BMI] 31.0-31.9, adult
CPT/HCPCS: 27447; 64447; 36415; 73560; 76705; 80048; 80076; 80307; 81001; 82040; 85025; 85610; 85730; 86850; 86900; 86901; 87081; 93005; 97110; 97116; 97161; 97165; 97530; A9270; C1713; C1776; J0171; J0360; J0461; J0690; J1100; J1170; J1200; J2250; J2270; J2405; J2704; J2795; J3010; J7030; J7120

== ENCOUNTER 2024-08-19 09:02 | Outpatient (CLI) | payer OTHER, SELFPAY ==
--- NOTE | ~2024-08-19 | NM_ITS ---
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 The patient was infused intravenously with Lexiscan (Regadenoson). Then, 34.9 mCi Tc99m tetrofosmin (Myoview) was administered intravenously, and stress images were obtained, initially in the supine position with repeat post stress images obtained in the prone position. Data was reconstru cted into short axis and horizontal and vertical long axis SPECT images. Gated SPECT images were also obtained. COMPARISON: None. FINDINGS: There is a moderate-sized mild reversible perfusion defect centered in the apical inferior and mid inferior segments with extension into a small portion of the immediately adjacent basilar inf erior and apical lateral segments. No reversible ischemia. There is normal left ventricular chamber size, wall motion and ejection fraction. Left ventricular ejection fraction measures 54%. IMPRESSION: 1. 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 No reversible ischemia. 2. Left ventricular ejection fraction measuring 54%. Reviewed, dictated and finalized at location A. IMPRESSION: 1. Size mild nonreversible infarct along the inferior wall and apical lateral s egment. No reversible ischemia. 2. Left ventricular ejection fraction measuring 54%.
--- NOTE | 2024-08-19 09:11 | EST_ITS ---
Patient Info Name: Jona Silva Age: 78 years : 1945 Gender: Male Ht: 70 in Wt: 210 lbs BSA: 2.19 m2 HR: 60 bpm BP: 132 / 85 mmHg Exam Date: 08/19/2024 9:11 AM Patient Status: O Admit Date: 08/19/2024 Exam Type: CA stress erickson w NM A regadenoson stress test was performed. Staff Referring Physician: Woo Lagunas DO Attending Provider: Woo Lagunas DO Exercise Technologist: Ashlee Rodriguez Exercise Physician: Woo Lagunas DO Summary 1. 1. Inconclusive lexiscan stress test for ischemic ST changes by ECG criteria due to paced ventricular rhythm. 2. 2. Stable hemodynamics throughout the test. 3. 3. Nuclear scan to follow and will be reported separately. Please correlate with it. 4. 4. Patient informed of the above results. Protocol: Lexiscan Stress ECG Details Stage: REST Duration (min): 0 min : 50 sec HR (bpm): 59 SBP (mmHg): 132 DBP (mmHg): 85 Stage: REST Duration (min): 6 min : 59 sec HR (bpm): 59 SBP (mmHg): 132 DBP (mmHg): 85 Stage: STAGE 1 Duration (min): 0 min : 59 sec HR (bpm): 61 SBP (mmHg): 130 DBP (mmHg): 88 Stage: RECOVERY Duration (min): 1 min : 0 sec HR (bpm): 70 SBP (mmHg): 130 DBP (mmHg): 88 Stage: RECOVERY Duration (min): 2 min : 0 sec HR (bpm): 68 SBP (mmHg): 130 DBP (mmHg): 88 Stage: RECOVERY Duration (min): 3 min : 0 sec HR (bpm): 66 SBP (mmHg): 122 DBP (mmHg): 79 Stage: RECOVERY Duration (min): 3 min : 17 sec HR (bpm): 64 SBP (mmHg): 122 DBP (mmHg): 79 Rest HR: 59 bpm Peak HR: 72 bpm Rest Sys BP: 132 mmHg Peak Sys BP: 130 mmHg Max Pred HR: 144 bpm % Max Pred HR: 50 % Target HR: 122 bpm Max RPP: 9,360 bpm*mmHg Termination Reason: Completed protocol Cardiac Symptoms: HEADACHE Total Time: 1 min : 0 sec Rest Warner BP: 85 mmHg Peak Warner BP: 88 mmHg Total Dose: 0.4 mg Resting ECG Atrial sense- ventricular paced rhythm. Stress ECG No ST changes. Arrhythmias None. Report Signatures
--- OUTSIDE RECORDS SUMMARY | 2024-08-19 09:42 | XMS_ITS | Clinical Summary ---
Author Organization [facility] Address [address] [place] [address] Care Team Providers Care Family Life Counselor Name Role Phone Yomi Reddy MD Primary Care Provider + [phone] Allergies No known active allergies Medications vardenafil (LEVITRA) 20 mg Oral tablet Take 1 Tab by mouth 1 time daily as needed. 2 Tab 1 07/22/19 10 Active CYANOCOBALAMIN, VITAMIN B-12, ORAL Take by mouth. Activ e levothyroxine (SYNTHROID) 137 mcg Oral tablet Take 1 Tab by mouth daily match up person. 90 Tab 3 12/28/19 12 Active triamterene-hydr ochlorothiazide (DYAZIDE) 37.5-25 mg Oral capsuleIndicatio ns:HTN (hypertension) Take 1 Cap by mouth daily match up person. 30 Cap 11 02/13/20 12 Active valsartan (DIOVAN) 160 mg Oral tablet Take 1 Tab by mouth daily. 30 Tab 11 02/13/20 12 Active tadalafil (CIALIS) 20 mg Oral tablet Take 1 Tab by mouth 1 time daily as needed for Other (See Comment). 3 Tab 10 02/19/20 12 Active atorvastatin (LIPITOR) 10 mg Oral tablet Take 1 Tab by mouth Daily LATE. 90 Tab 3 10/31/19 13 Active aspirin (ABDI) 81 mg Tablet Take 1 Tablet (81 mg) by mouth see administration instructions. Every other day 1 Tablet 08/12/19 20 Active carisoprodoL (SOMA) 350 mg tabletIndication s:Spinal stenosis, lumbar region, with neurogenic claudication Take 1 Tablet (350 mg) by mouth every 6 hours as needed for Spasm. 60 Tablet 0 3:16 PM CDT 08/01/19 20 Active docusate sodium (COLACE) 100 mg capsule Take 1 Capsule (100 mg) by mouth 2 times daily. 60 Capsule 0 3:16 PM CDT 08/01/19 20 Active ibuprofen (MOTRIN) 600 mg tablet Take 1 Tablet (600 mg) by mouth 3 times daily as needed for mild pain. 60 Tablet 0 3:16 PM CDT 08/01/19 20 Active oxyCODONE (ROXICODONE) 10 mg tabletIndication s:Spinal stenosis, lumbar region, with neurogenic claudication Take 1 Tablet (10 mg) by mouth every 4 hours as needed for severe pain. Max Daily Amount: 60 mg 30 Tablet 0 3:16 PM CDT 08/01/19 20 Active Active Problems Patient Care Coordination No te Formatting of this note migh t be different from the original. Prev physical done 08/08/10 Problem Noted Date Diagnosed Date Spondylolisthesis at L4-L5 level 07/24/2019 Spinal stenosis, lumbar gabriela on, with neurogenic claudication 07/20/2019 Essential hypertension, benign 12/05/2010 Hyperlipidemia 07/21/2009 Hypothyroidism 07/21/2009 Bladder cancer 07/21/2009 Resolved Problems Problem Noted Date Diagnosed Date Resolved Date Elevated blood pressure (not hypertension) 07/21/2009 10/11/2010 Immunizations Immunization Administration Dates Next Due (ADACEL/BOOSTRIX)(10 YR UP) TDAP VACCINE, 0.5ML, IM 03/11/2005 (PNEUMOVAX 23)(50 YRS UP) PN EUMOCOCCAL POLYSACCHARIDE (PPV23) 0.5 ML, IM 01/23/2010 Family History Medical History Relation Name Comments Heart Failure Father Heart Disease Mother Relation Name Status Comments Father Mother Social History Tobacco Use Types Packs/Day Years Used Date Smoking Tobacco: Former Cigarettes Smokeless Tobacco: Never Comments:quit thirty years a go Alcohol Use Standard Drinks/Week Comments Yes 0 (1 standard drink = 0.6 oz pur e alcohol) ocassionally Feeling Safe Answer Date Recorded Within the last year, have y ou been afraid of your partner or ex-partner? No 07/29/2019 Within the last year, have y ou been humiliated or emotionally abused in other ways by your partner or ex-partner? No Within the last year, have y ou been kicked, hit, slapped, or otherwise physically hurt by your partner or ex-partner? No 07/29/2019 Within the last year, have y ou been raped or forced to have any kind of sexual activity by your partner or ex-partner? No 07/29/2019 Social Connections Answer Date Recorded In a typical week, how many times do you talk on the phone with family, friends, or neighbors? Patient declined 07/29/2019 How often do you get togethe r with friends or relatives? Patient declined 07/29/2019 How often do you attend roman catholic or advent serv ices? Patient declined 07/29/2019 Do you belong to any clubs o r organizations such as roman catholic groups, unions, fraternal or athletic groups, or school groups? Patient declined 07/29/2019 How often do you attend meet ings of the clubs or organizations you belong to? Patient declined 07/29/2019 Are you , , di vorced, , never , or living with a partner? Patient declined 07/29/2019 Financial Resource Strain Answer Date R ecorded How hard is it for you to pa y for the very basics like food, housing, medical care, and heating? Not hard at all 07/29/2019 Food Insecurity Answer Date Recorded Within the past 12 months, y ou worried that your food would run out before you got the money to buy more. Never true 07/29/19 20 Within the past 12 months, t he food you bought just didn't last and you didn't have money to get more. Never true 07/29/2019 Transportation Needs Answer Date Record ed In the past 12 months, has l ack of transportation kept you from medical appointments or from getting medications? No 07/10 In the past 12 months, has l ack of transportation kept you from meetings, work, or from getting things needed for daily living? No 07/29/2019 Sex and Gender Information Value Date Recorded Sex Assigned at Not on file Legal Sex Male 5:52 AM ASTROCHEMIST Gender Identity Not on file Sexual Orientation Not on file Occupation Industry Job Start Date Job End Date Not on file Not on file Not on file Not on file Last Filed Vital Signs Vital Sign Reading Time Taken Comments Blood Pressure 131/66 07/31/2019 11:40 PM CDT Pulse 89 07/30/2019 11:21 PM CDT Temperature 37.2 C (98.9 F) 07/31/2019 11:40 PM CDT Respiratory Rate 18 07/31/2019 11:40 PM CDT Oxygen Saturation 96% 07/31/2019 11:40 PM CDT Inhaled Oxygen Concentration - - Weight 98.9 kg (218 lb) 07/31/2019 8:00 AM CDT Height 177.8 cm (5' 10) 07/31/2019 8:00 AM CDT Body Mass Index 31.28 07/31/2019 8:00 AM CDT Plan of Treatment Health Maintenance Due Date Last Done Comments ZOSTER VACCINE (1 of 2) 12/13/1997 PNEUMOCOCCAL VACCINE 50+ YEA RS (2 of 2 - PCV) 01/23/2011 01/23/2010 COLORECTAL SCREENING 01/25/2014 01/25/2010, 01/17/20 10 DTAP/TDAP/TD VACCINES (2 - Td or Tdap) 03/11/2015 RSV VACCINE (60+ or ) (1 - 1-dose 75+ series) 12/13/2022 INFLUENZA VACCINE (#1) 2023 Medical Devices Implanted Type Area Shredded Filler Cutter Operator Device Identifier Shelf Expiration Date Model / Serial / Lot Hemostatic Surgiflo 8ml W/Thrombin 2994 - [id number] Implanted:Qty: 1 on 07/29/2019 by Hair Flores MD at [facility] Hemostatic N/A: Spine Lumbar [employer] 03/10/2020 2994 / / [id number] Jeremias Cdh Solera Ccm 4.07y56xx Capped [id number] - [id number] Implanted:Qty: 2 on 07/29/2019 by Hair Flores MD at [facility] Jeremias N/A: Spine Lumbar [employer] SOFAMOR DANEK [id number] / / Description:Load Number: [id number] Sterilized: May 28, 2019 Screw Solera Trent Ma 5.5x35mm 4.75 Ext Tab [id number] - [id number] Implanted:Qty: 1 on 07/29/2019 by Hair Flores MD at [facility] Screw N/A: Spine Lumbar [employer] SO[employer]AMOR [employer]ANEK [id number] / / Description:Load Number: [id number] Sterilized: May 28, 2019 REQ#[id number] Screw Solera Trent Ma 5.5x40mm 4.75 Ext Tab [id number] - [id number] Implanted:Qty: 3 on 07/29/2019 by Hair Flores MD at [facility] Screw N/A: Spine Lumbar [employer] SOFAMOR DANEK [id number] / / Description:Load Number: [id number] Sterilized: May 29, 2019 Set Screw Solera Perc 4.75mm [id number] - [id number] Implanted:Qty: 4 on 07/29/2019 by Hair Flores MD at [facility] Screw N/A: Spine Lumbar [employer] SO[employer]AMOR [employer]ANEK [id number] / / Description:Load Number: [id number] Sterilized: May 28, 2019 Spacer Elevate X-Soraida 28x7mm [id number] - [id number] Implanted:Qty: 1 on 07/29/2019 by Hair Flores MD at [facility] Spacer N/A: Spine Lumbar [employer] SOFAMOR DANEK 04/20/2027 [id number] / / [id number] Putty Edgemont Dbm 1ml [id number] - [id number] Implanted:Qty: 1 on 07/29/2019 by Hair Flores MD at [facility] Tissue N/A: Spine Lumbar [employer] 2021 [id number] / [id number] / Description:REQ [id number] Insurance [facility] [place] [facility] [place] Address: [facility] [address] [place] [address] RX MEDIMPACT Member Subscriber Plan / Payer (Ef fective 2014-Present) Name:Jona Silva Relation to Subscriber:Self Name:Jona Silva Payer ID:Not on file Group ID:[id number] Type:RX Medicare Part D Address: [address] RX DONIS PLANS (INTERNAL) [facility] Plans Advance Directives For more information, please contact: [phone] * Full Code (Latest Code Status on File) Date Activated Date Inactivated Comments 07/29/2019 3:37 PM 08/01/2019 6:26 PM * Full Code Date Activated Date Inactivated Comments 07/29/2019 9:18 AM 07/29/2019 3:37 PM * Full Code Date Activated Date Inactivated Comments 06/25/2011 1:33 PM 06/25/2011 8:20 PM * Full Code Date Activated Date Inactivated Comments 06/25/2011 12:43 PM 06/25/2011 1:33 PM * Full Code Date Activated Date Inactivated Comments 01/16/2010 10:54 AM 01/17/2010 2:32 AM Care Teams Family Life Counselor Relationship Specialty Start Date End Date Yomi Reddy MD [address] [place] [id number] PCP - General Internal Medicine 07/15/19
== END 2024-08-19 09:03 | disposition home or self-care (01) ==
PROVIDERS: PCP Emergency Medicine; Visit Provider Internal Medicine Cardiovascular Disease
DX: I51.9 Heart disease, unspecified (principal); Z95.2 Presence of prosthetic heart valve; I21.9 Acute myocardial infarction, unspecified
CPT/HCPCS: 78452; 93017; A9502; J2785

== ENCOUNTER 2024-08-26 08:12 | Outpatient (CLI) | payer OTHER, SELFPAY ==
--- OUTSIDE RECORDS SUMMARY | 2024-08-26 08:32 | XMS_ITS | Clinical Summary ---
Author Organization [facility] Address [address] [place] [address] Care Team Providers Care Machine Cloth Examiner Name Role Phone Yomi Reddy MD Primary Care Provider + [phone] Allergies No known active allergies Medications vardenafil (LEVITRA) 20 mg Oral tablet Take 1 Tab by mouth 1 time daily as needed. 2 Tab 1 07/22/19 10 Active CYANOCOBALAMIN, VITAMIN B-12, ORAL Take by mouth. 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 90 Tab 3 12/28/19 12 Active triamterene-hydr ochlorothiazide (DYAZIDE) 37.5-25 mg Oral capsuleIndicatio ns:HTN (hypertension) Take 1 Cap by mouth daily prepress stripper. 30 Cap 11 02/13/20 12 Active valsartan [...] declined 07/29/2019 How often do you attend tenriism or pentecostal serv ices? 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 Gender Identity Not on file Sexual Orientation [...] (#1) 2023 Medical Devices Implanted Type Area Immigration Judge Device Identifier Shelf Expiration Date Model / Serial / Lot Hemostatic Surgiflo 8ml W/Thrombin 2994 - [id number] Implanted:Qty: 1 on 07/29/2019 by Hair Flores MD at [facility] Hemostatic N/A: Spine Lumbar [employer] 03/10/2020 2994 / / [id number] Jeremias Cdh Solera Ccm 4.10e84ow Capped [id number] - [id number] Implanted:Qty: 2 on 07/29/2019 by Hair Flores MD at [facility] Jeremias N/A: Spine Lumbar [employer] SOFAMOR DANEK [id number] / / Description:Load Number: [id number] Sterilized: May 28, 2019 Screw Solera Trent Ma 5.5x35mm 4.75 Ext Tab [id number] - [id number] Implanted:Qty: 1 on 07/29/2019 by Hair Flores MD at [facility] Screw N/A: Spine Lumbar [employer] SOFAMOR [employer]ANE[employer] [id number] / / Description:Load Number: [id number] Sterilized: May 28, 2019 REQ#[id number] Screw Solera Trent Ma 5.5x40mm 4.75 Ext Tab [id number] - [id number] Implanted:Qty: 3 on 07/29/2019 by Hair Flores MD at [facility] Screw N/A: Spine Lumbar [employer] SOFAMOR DANEK [id number] / / Description:Load Number: [id number] Sterilized: May 29, 2019 Set Screw Solera Perc 4.75mm [id number] - [id number] Implanted:Qty: 4 on 07/29/2019 by Hair Flores MD at [facility] Screw N/A: Spine Lumbar [employer] SOFAMOR DANEK [id number] / / Description:Load Number: [id number] Sterilized: May 28, 2019 Spacer Elevate X-Soraida 28x7mm [id number] - [id number] Implanted:Qty: 1 on 07/29/2019 by Hair Flores MD at [facility] Spacer N/A: Spine Lumbar [employer] SOFAMOR DANEK 04/20/2027 [id number] / / [id number] Putty Ambrose Dbm 1ml [id number] - [id number] Implanted:Qty: 1 on 07/29/2019 by Hair Flores MD at [facility] Tissue N/A: Spine Lumbar [employer] 2021 [id number] / [id number] / Description:[id number] [place] [facility] [place] [facility] [address] [place] [id number] RX MEDIMPACT Member Subscriber Plan / Payer (Ef fective 2014-Present) Name:Jona Silva Relation to Subscriber:Self Name:Jona Silva Payer ID:Not on file Group ID:[id number] Type:RX Medicare Part D Address: [place] RX DON[employer] PLANS (INTERNAL) [facility] Plans Advance Directives For more information, please contact: [phone] * Full Code (Latest Code Status on [...] 10:54 AM 01/17/2010 2:32 AM Care Teams Machine Cloth Examiner Relationship Specialty Start Date End Date Yomi Reddy MD [address] [place] [id number] PCP - General Internal Medicine 07/15/19
[2024-09-08 21:10] VITALS: BMI 30.1
--- NOTE | 2024-09-08 21:10 | P.SLEEP_ITS ---
Sleep Study - Home Unattended Date of Study: 08/26/24 Ordering Provider: Woo Lagunas DO Interpreting Provider: Debbie Salazar DO Home Sleep Study Type: Watch PAT Height: 1.78 m Weight: 95.254 kg Body Mass Index: 30.1 Neck Circumference (inches): 16.25 [place]: 4 Reason for Sleep Study daytime hypersomnia Sleep History The patient is a 78-year-old male who had a sleep study ordered by his shirt turner for evaluation of sleep apnea. The patient denies awakening from sleep short of breath. He rarely awakens at night with heartburn, belching, or cough. He occasionally snores, and it is occasionally loud enough that others complain. He denies having trouble sleeping when he has a cold. He denies waking up gasping for air throughout the night. He rarely has breathing problems at night observed by himself or others. He denies sweating excessively at night. He denies having heart palpitations or irregular heartbeats during the night. He occasionally falls asleep during the day, but never while driving. He denies sleep paralysis and cataplexy. He denies having trouble at school or work due to sleepiness. He rarely experiences vivid dreamlike scenes upon awakening or falling asleep. He denies feeling afraid of going to sleep. He rarely has nightmares. He rarely remembers his dreams. He occasionally has thoughts racing through his mind. He denies feeling sad or depressed. He occasionally has anxiety. He denies having muscular tension. He denies noticing parts of his body jerk. He denies kicking during the night. He denies having crawling and aching feelings in his legs, and denies having leg pain during the night. He rarely grinds his teeth during sleep, but never awakens with morning jaw pain. He is frequently bothered by pain during the day, but never awakened by pain during the night. He frequently wakes up feeling stiff in the morning. He occasionally wakes up with sore or aching muscles. He denies waking up with pain in the neck, spine, and other joints. He goes to bed between 10:30 to 11:00 p.m. on both weekdays and weekends. It takes him 15 minutes to fall asleep. He wakes up twice throughout the night to urinate and is able to fall back asleep within 10 minutes. He wakes up at 6 a.m. every morning. He typically gets 7 hours of sleep per night. He will stay in bed for 15 minutes after waking up in the morning. He currently lives with his . He denies consuming any caffeinated beverages within two hours of bedtime. He denies engaging in physical exercise before bedtime. He will watch television before falling asleep. He will take naps in the afternoon or the evening, and they are refreshing. He consumes 3 caffeinated beverages per day. He consumes 1 alcoholic beverage per day. He quit smoking cigarettes 40 years ago. He denies recreational drug use. [facility] Past Medical History Medical History Erectile dysfunction Hyperglycemia Vitamin D deficiency Synovial cyst of popliteal space [[place]], right knee Primary osteoarthritis of both knees Malignant neoplasm of lateral wall of bladder Kidney disease, chronic, stage III (GFR 30-59 ml/min) Enlarged prostate Effusion, right knee Dry eye Chronic pain of right knee Abnormal LFTs Hyperlipidemia Hypertension Pre-diabetes Hemoglobin A1c was 6.2% on 07/21/2020. Thoracic aortic aneurysm Bladder cancer Degenerative joint disease of knee Right knee pain Lumbar stenosis with neurogenic claudication Back pain Vitamin B 12 deficiency Hypothyroidism (acquired) Surgical History Surgical History History of ventral hernia repair History of lumbar fusion History of laminectomy History of repair of rotator cuff History of right knee joint replacement (10/18/20) Family History Family History Father Family history of congestive heart failure, Onset Age: 85 Hypertension Mother Family history of cardiovascular disease Social History Social History Social History: Surrogate decision maker: Marie Silva, . Code status: Full code. Smoking packs per day: 2 Smoking cigarettes per day: 40.0 Years smoked: 10 Smoking pack-years: 20.00 Smoking status: Current some day smoker Tobacco type: cigars Smoking end date: 03/11/84 Additional smoking assessment comments: QUIT 1984 Alcohol intake: current Drinks per week: 3 Substance use: never Substance use type: does not use Do You Feel Safe in your Home?: Yes Lack of Transportation: No Lack of Food: Never True Current Housing: I Have Housing Concerned About Future Housing: No Difficulty Paying Gas/Electric Bills: YES Difficulty Paying for Meds: No Currently Unemployed: No Education: High School Diploma/GED Difficulty w/ Childcare or Family Care: No Living arrangements: with family Additional living arrangements comments: Lives in [place]. 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 Medications Home Medications ?Medication ?Instructions ?Recorded ?Confirmed ?Type rosuvastatin 20 mg tablet See Rx Instructions .Route 03/25/24 07/31/24 Rx .COMPLEX #90 tabs semaglutide 7 mg tablet (Rybelsus) 7 mg PO DAILY #90 tabs 04/01/24 07/31/24 Rx levothyroxine 125 mcg tablet See Rx Instructions .Route 04/16/24 07/31/24 Rx .COMPLEX #90 tabs amlodipine 5 mg tablet 5 mg PO DAILY #90 tabs 07/27/24 07/31/24 Rx aspirin 81 mg tablet 81 mg PO DAILY 07/27/24 07/31/24 History mecobalamin (vitamin B12) 500 mcg mcg PO 07/27/24 07/31/24 History chewable tablet alprazolam 0.5 mg tablet 0.25 mg (1/2 x 0.5 mg) PO QHS PRN 07/31/24 07/31/24 Rx sleep #30 tabs tadalafil 20 mg tablet 40 mg (2 x 20 mg) PO DAILY PRN 07/31/24 Rx sexual activity #90 tabs triamcinolone acetonide 0.1 % 1 applic topical TID #80 grams 07/31/24 Rx topical ointment carvedilol 6.25 mg tablet 6.25 mg PO BID #180 tabs 08/11/24 Rx sacubitril 24 mg-valsartan 26 mg 1 tablet PO BID #180 tabs 08/11/24 Rx tablet (Entresto) cyclobenzaprine 10 mg tablet 10 mg PO BID PRN muscle spasm #14 09/02/24 Rx tabs hydrocodone 5 mg-acetaminophen 325 1 tablet PO Q12H PRN pain #14 tabs 09/02/24 Rx mg tablet Sleep Procedure The sleep study was completed using SaaspointPAT a technically adequate device with seven channels: peripheral arterial tone, actigraphy, body position, snore, respiratory movement, pulse oximetry, sleep staging, and heart rate. Prior to using the device, the patient received verbal and written instructions for its application and was provided with the help desk phone number for additional telephonic instruction with 24-hour availability of qualified personnel to answer questions. The study was scored using CMS guidelines. Sleep Architecture The total recording time is 7 hrs, 31 min. The total sleep time is 6 hrs, 40 min. Sleep latency is 6 minutes. REM latency is 77 minutes. The patient had 5 episodes of waking. Sleep architecture shows 9.9% deep sleep, 71.3% light sleep, and (as % Total Sleep Time) showed NREM (Light 71.3%; Deep 9.9%), and a 18.8% stage REM. The patient spent 69.9% of total sleep time in the supine position. Sleep efficiency was 88.69. Respiratory Analysis The overall AHI (pAHI 4%:) is 10.1. The overall AHI (pAHI 3%:) is 20.4. The central AHI is 5.5. The AHI was 17.6 in NREM and 32.2 in REM sleep. The AHI was 20.7 in Supine and 19.7 in Non-supine sleep. Percent of Allen Madsen respirations is 0.0. Oximetry Data The oxygen desaturation index (DAMI 4%:) is 10.4. The mean saturation is 93%, and the lowest saturation is 84%. Time spent with saturation < 88% is 0.0 minutes. Snoring Profile Snoring average intensity is 40 dB. The patient snored above 45 decibels for 9.4 minutes, 2.3% of sleep time. Cardiac Profile The average pulse rate is 61 beats per minutes. The lowest pulse rate is 52 bpm. The highest pulse rate reported is 79 bpm. Atrial fibrillation was not detected. Premature beats occur <0.1 per minute. Assessment and Plan Assessment and Plan (1) ANTHONY (obstructive sleep apnea): Code(s): G47.33 - Obstructive sleep apnea (adult) (pediatric) Status: Acute Assessment and Plan: The patient had an overall AHI of 10.1 with desaturation down to 84%. This is consistent with mild sleep apnea. Due to the patient's hypertension, he qualifies for treatment. I recommend that the patient have a CPAP Titrations study with the use of a hypnotic to ensure we obtain enough sleep data and find an optimal pressure setting. Data The data obtained during this sleep study is adequate for interpretation. Certification This sleep study has been reviewed by a board certified sleep medicine physician.
== END 2024-08-27 09:44 | disposition home or self-care (01) ==
PROVIDERS: PCP Emergency Medicine; Visit Provider Internal Medicine Cardiovascular Disease
DX: G47.10 Hypersomnia, unspecified (principal); G47.33 Obstructive sleep apnea (adult) (pediatric)
CPT/HCPCS: 95800

== ENCOUNTER 2024-09-02 19:08 | Emergency (ER) | payer OTHER, SELFPAY ==
--- NOTE | ~2024-09-02 | CT_ITS ---
CLINICAL INDICATION: Left-sided flank pain COMPARISON: Reference is made to an MRI examination of the lumbar spine dated 08/04/2013 (a preoperati ve evaluation). TECHNIQUE: Multiple contiguous axial images of the abdomen and pelvis were performed following the ad ministration of with 100 mL Omnipaque-350 intravenous contrast The dose-length product (DLP) was 978.26 mGy-cm. Automated exposure control and iterative reconstruction technique were employed. FINDINGS/OBSERVATIONS: Visualized lower thorax: The bilateral lung bases are clear. The heart is of normal size, without pericardial effusion. Small hiatal hernia is present. Liver: The liver demonstrates homogeneous enhancement and is not enlarged. Gallbladder and biliary system: The gallbladder is only minimally distended, and otherwise unremarkable. Pancreas: The pancreas enhances homogeneously without ductal dilatation. Spleen: The spleen enhances homogeneously and is not enlarged measuring 8 cm in longitudinal dimension. Kidneys: Redemonstration of a well-circumscribed, rounded focus of fluid attenuation exophytic from t he lower pole of the left kidney measuring 5.6 x 5.5 x 4.7 cm (anterior to posterior x medial to late ral x cranial to caudal dimension), consistent with a simple cyst. Redemonstration of a nonobstructing 3 mm calculus within the upper pole of the right kidney. The remainder of the bilateral kidneys otherwise enhance symmetrically without hydronephrosis or mde tional renal calculi. Adrenal glands: Unremarkable. Gastrointestinal tract: Colonic diverticulosis without surrounding inflammatory change. Appendix: The appendix is of normal caliber (axial series, images 118 through 137). Vasculature: Unremarkable. Lymph nodes: No pathologically enlarged or morphologically suspicious lymph nodes within the retroperitoneum or at the root of the mesentery. Pelvic structures: The bladder is distended, and otherwise unremarkable. The prostate gland is enlarged, measuring 5.3 x 6.0 x 5.9 cm, and contains bulky calcifications. The seminal vesicles are prominent, a nonspecific finding. Body wall and musculoskeletal: Small fat-containing umbilical hernia. Fat-containing right inguinal hernia. Posterior fixation is identified at the levels of L4 and L5 with an intervertebral disc spacer at L4/ L5. MRI examination and demonstrated significant central canal stenosis at the level of L2/L3 in 2013. AT THE LEVEL OF L1/L2: is a left paracentral disc protrusion without significant mass effect on eithe r the spinal canal or bilateral neural foramen. AT THE LEVEL OF L2/L3: is a broad-based disc protrusion with mass effect on both the spinal canal and bilateral neural foramen at this level. Hypertrophy of the ligamentum flavum is also noted, contributing to the significant degree of spinal stenosis. The anterior to posterior dimension of the spinal canal at this level measures 6.4 mm. AT THE LEVEL OF L3/L4: There is a right paracentral disc protrusion with mass effect on both the spin al canal and right neural foramen at this level. Hypertrophy of the ligamentum flavum is also noted, contributing to the degree of spinal stenosis. The anterior to posterior dimension of the spinal canal at this level measures 7 mm Limited evaluation of the L4/L5 level secondary to streak metallic artifact from patient's posterior fixation hardware. AT THE LEVEL OF L5/S1: no significant disc protrusion is appreciated. IMPRESSION: Significant degenerative disease within the lumbosacral spine is most severe at the level of L2/L3 an d L3/L4, as detailed above. Remainder of the examination is unchanged, as detailed above. Reviewed, dictated and finalized at location A. IMPRESSION: Significant degenerative disease within the lumbosacral spine is most severe at the level of L2/L3 and L3/L4, as detailed above. Remainder of the examination is unchanged, as detailed above.
--- NOTE | ~2024-09-02 | CT_ITS ---
CLINICAL INDICATION: Left flank pain COMPARISON: None. TECHNIQUE: Multiple contiguous axial images of the abdomen and pelvis were performed without the admi nistration of intravenous contrast The dose-length product (DLP) was 872.08 mGy-cm. Automated exposure control and iterative reconstruction technique were employed. FINDINGS/OBSERVATIONS: Visualized lower thorax: The bilateral lung bases are clear. The heart is enlarged, without pericardial effusion. Small hiatal hernia is present. Liver: The liver demonstrates homogeneous attenuation and is not enlarged. Gallbladder and biliary system: The gallbladder is only minimally distended, and otherwise unremarkable. Pancreas: Limited evaluation of the pancreas secondary to the lack of intravenous contrast. Spleen: The spleen demonstrates homogeneous attenuation and is not enlarged. Kidneys: 3 mm nonobstructing calculus within the upper pole of the right kidney. Well-circumscribed focus of fluid attenuation exophytic from the lower pole of the left kidney measur ing 5.6 x 5.5 x 4.7 cm (anterior to posterior x medial to lateral x cranial to caudal dimension), con sistent with a simple cyst. The remainder of the bilateral kidneys are otherwise unremarkable, without hydronephrosis or addition al renal calculi. Adrenal glands: Unremarkable. Gastrointestinal tract: Colonic diverticulosis without surrounding inflammatory change. Appendix: The appendix is not definitively visualized. However, no pericecal inflammatory change is identified suggest the presence of acute appendicitis. Vasculature: Unremarkable. Lymph nodes: No pathologically enlarged or morphologically suspicious lymph nodes within the retroperitoneum or at the root of the mesentery. Pelvic structures: The bladder is only minimally distended, and otherwise unremarkable. The prostate gland is enlarged and contains multiple bulky calcifications. Body wall and musculoskeletal: Small fat-containing umbilical hernia. Fat-containing right inguinal hernia. Age-appropriate degenerative disease within the lumbosacral spine with posterior fixation at the leve ls of L4 and L5. IMPRESSION: No obstructive uropathy. Nonobstructing 3 mm right renal stone. Simple cyst exophytic from the lower pole of the left kidney. Reviewed, dictated and finalized at location A.
[2024-09-02 19:19] VITALS: BP 146/77; PULSE 67; RESP 14; TEMP 36.3; O2SAT 96
[2024-09-02 21:30] VITALS: BP 152/75; PULSE 60; RESP 14; O2SAT 97
--- NOTE | 2024-09-02 21:36 | ED.MALEGU ---
HPI - Male Genitourinary General Chief complaint: Urogenital-Male <Radha Rodarte MD - Last Filed: 09/02/24 23:20> Stated complaint: flank pain <Radha Rodarte MD - Last Filed: 09/02/24 23:20> Time Seen by Provider: 09/02/24 21:33 <Radha Rodarte MD - Last Filed: 09/02/24 23:20> Source: patient and family <Radha Rodarte MD - Last Filed: 09/02/24 23:20> Mode of arrival: ambulatory <Radha Rodarte MD - Last Filed: 09/02/24 23:20> Limitations: no limitations <Radha Rodarte MD - Last Filed: 09/02/24 23:20> History of Present Illness HPI Narrative: 78-year-old male presents with left flank pain that started acutely 5 days ago and has persisted. States it feels deep but pinpoint. History of back issues for which he had surgery but states that this feels different. He called his primary care physician Dr Reddy who advised he come in. He has been nauseated today but not vomiting. No dysuria or hematuria. reports that he had stated he had some foamy urine today. History of bladder cancer for which he had previously followed with urologist Dr Cummins. He has been taking two 500mg Tylenol nearly every 4 hours due to the pain. states this is unlike him. Finds it very difficult to get into a comfortable position. He is still making urine. Denies any history of urinary tract infection or pyelonephritis. Denies any history of kidney stone. No dysuria hematuria. No fevers or chills. No abdominal pain. <Radha Rodarte MD - Last Filed: 09/02/24 23:20> Related Data Home medications: Home Medications ?Medication ?Instructions ?Recorded ?Confirmed ?Last Taken ?Type aspirin 81 mg tablet 81 mg PO DAILY 07/27/24 07/31/24 Unknown History mecobalamin (vitamin B12) 500 mcg mcg PO 07/27/24 07/31/24 Unknown History chewable tablet <Radha Rodarte MD - Last Filed: 09/02/24 23:20> Allergies/Adverse reactions: Allergies Allergy/AdvReac Type Severity Reaction Status Date / Time No Known Allergies Allergy Verified 09/02/24 19:23 <Radha Rodarte MD - Last Filed: 09/02/24 23:20> FORMERLY [facility], [facility] Past Medical History Medical History: Medical History Erectile dysfunction Hyperglycemia Vitamin D deficiency Synovial cyst of popliteal space [[place]well], right knee Primary osteoarthritis of both knees Malignant neoplasm of lateral wall of bladder Kidney disease, chronic, stage III (GFR 30-59 ml/min) Enlarged prostate Effusion, right knee Dry eye Chronic pain of right knee Abnormal LFTs Hyperlipidemia Hypertension Pre-diabetes Hemoglobin A1c was 6.2% on 07/21/2020. Thoracic aortic aneurysm Bladder cancer Degenerative joint disease of knee Right knee pain Lumbar stenosis with neurogenic claudication Back pain Vitamin B 12 deficiency Hypothyroidism (acquired) <Radha Rodarte MD - Last Filed: 09/02/24 23:20> Surgical History Surgical History: Surgical History History of ventral hernia repair History of lumbar fusion History of laminectomy History of repair of rotator cuff History of right knee joint replacement (10/18/20) <Radha Rodarte MD - Last Filed: 09/02/24 23:20> Family History Family History: Family History Father Family history of congestive heart failure, Onset Age: 85 Hypertension Mother Family history of cardiovascular disease <Radha Rodarte MD - Last Filed: 09/02/24 23:20> Social History Social History: Social History (Updated 07/31/24 @ 09:45 by Mesha Gtz MA) Social History: Surrogate decision maker: Marie Silva, . Code status: Full code. Smoking packs per day: 2 Smoking cigarettes per day: 40.0 Years smoked: 10 Smoking pack-years: 20.00 Smoking status: Current some day smoker Tobacco type: cigars Smoking end date: 03/11/84 Additional smoking assessment comments: QUIT 1984 Alcohol intake: current Drinks per week: 3 Substance use: never Substance use type: does not use Do You Feel Safe in your Home?: Yes Lack of Transportation: No Lack of Food: Never True Current Housing: I Have Housing Concerned About Future Housing: No Difficulty Paying Gas/Electric Bills: YES Difficulty Paying for Meds: No Currently Unemployed: No Education: High School Diploma/GED Difficulty w/ Childcare or Family Care: No Living arrangements: with family Additional living arrangements comments: Lives in [place]. 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 <Radha Rodarte MD - Last Filed: 09/02/24 23:20> Exam Narrative: GENERAL: Well-appearing, well-nourished, and in no acute distress. HEAD: Normocephalic, atraumatic. EYES: Non injected, non icteric ENT: Nares clear, no rhinorrhea or epistaxis. Gross auditory acuity intact. NECK: Supple. No meningismus. CHEST: Speaking in full sentences. No respiratory distress. HEART: Regular rate and rhythm. . BACK: Well healed lumbar surgical scar. ABDOMEN: Soft, nondistended. No tenderness to palpation throughout. No rigidity or guarding. Not peritoneal EXTREMITIES: Normal range of motion. No lower extremity edema. SKIN: Warm, dry, no rash. In particular, no vesicles/ecchymosis/erythema/induration. No CVA tenderness NEURO: No focal deficits. Alert and oriented. Answering questions. Following commands. Normal speech without aphasia or dysarthria. PSYCH: Normal mood and affect. <Radha Rodarte MD - Last Filed: 09/02/24 23:20> Course Vital Signs Vital signs: Vital Signs Temperature 97.4 F L 09/02/24 19:19 Pulse Rate 67 09/02/24 19:19 Respiratory Rate 14 09/02/24 19:19 Blood Pressure 146/77 H 09/02/24 19:19 Pulse Oximetry 96 09/02/24 19:19 Oxygen Delivery Room Air 09/02/24 19:19 Temperature 97.4 F L 09/02/24 19:19 Pulse Rate 67 09/02/24 19:19 Respiratory Rate 14 09/02/24 19:19 Blood Pressure 146/77 H 09/02/24 19:19 Pulse Oximetry 96 09/02/24 19:19 Oxygen Delivery Room Air 09/02/24 19:19 <Radha Rodarte MD - Last Filed: 09/02/24 23:20> Vital Signs Temperature 97.4 F L 09/02/24 19:19 Pulse Rate 67 09/02/24 19:19 Respiratory Rate 14 09/02/24 19:19 Blood Pressure 146/77 H 09/02/24 19:19 Pulse Oximetry 96 09/02/24 19:19 Oxygen Delivery Room Air 09/02/24 19:19 Temperature 97.4 F L 09/02/24 19:19 Pulse Rate 67 09/02/24 19:19 Respiratory Rate 14 09/02/24 19:19 Blood Pressure 146/77 H 09/02/24 19:19 Pulse Oximetry 96 09/02/24 19:19 Oxygen Delivery Room Air 09/02/24 19:19 <Kody Helton MD - Last Filed: 09/02/24 23:51> MDM - Male Genitourinary MDM Narrative Medical decision making narrative: Patient presents with acute onset left pain that started 5 days ago and has persisted. In the emergency department he is afebrile with acceptable vital signs. Urine without evidence of infection. Rest of labs without abnormal kidney function or leukocytosis. Normal acetaminophen level. Spoke with Dr. Vera given negative non contrast. Will proceed with CT with contrast. Your patient has a stone that is within the kidney and that should not be painful. Also there is assist which may be causing compression although this is was already worked up thoroughly cleaned patient was in [place] in June earlier this year. Deemed otherwise benign. Signed out ED attending pending this. <Radha Rodarte MD - Last Filed: 09/02/24 23:20> Patient presents with acute onset left pain that started 5 days ago and has persisted. In the emergency department he is afebrile with acceptable vital signs. Urine without evidence of infection. Rest of labs without abnormal kidney function or leukocytosis. Normal acetaminophen level. Spoke with Dr. Vera given negative non contrast. Will proceed with CT with contrast. Your patient has a stone that is within the kidney and that should not be painful. Also there is assist which may be causing compression although this is was already worked up thoroughly cleaned patient was in [place] in June earlier this year. Deemed otherwise benign. Signed out ED attending pending this. -- On re-evaluation patient states that the Toradol did help to control his pain. At time of sign-out CT scan with contrast was pending, CT scan with contrast showed no new acute findings. Patient family were updated on the results of the workup and plan for treatment for home. Patient is being provided Worley for pain control in addition to Flexeril. Patient was encouraged close follow-up with primary care physician for additional outpatient testing. Patient was also educated on reasons to return to the emergency department and patient family are comfortable with this discharge plan. <Kody Helton MD - Last Filed: 09/02/24 23:51> Differential Diagnosis Differential diagnosis: Likely urinary tract infection (Pyelonephritis) and other (Musculoskeletal, nephrosis/nephritis; shingles/zoster; accidental acetaminophen overdose; proximal ureteral stone) <Radha Rodarte MD - Last Filed: 09/02/24 23:20> Lab Data Attestation: I reviewed the patient's lab results. <Radha Rodarte MD - Last Filed: 09/02/24 23:20> Result diagrams: 09/02/24 21:07 09/02/24 21:07 <Radha Rodarte MD - Last Filed: 09/02/24 23:20> Labs: Lab Results 09/02/24 Range/Units 21:07 WBC 7.3 (4.5-10.0) K/mm3 RBC 4.53 L (4.6-6.20) M/mm3 Hgb 14.1 (14.0-18.0) g/dL Hct 42.5 (42.0-52.0) % MCV 93.8 (80-100) fl MCH 31.1 (26-34) pg MCHC 33.2 (32-36) g/dl RDW 12.9 (11.5-14.5) % Plt Count 234 (150-375) k/mm3 MPV 10.1 (7.4-10.4) fl Immature Gran % (Auto) 0.3 (0-0.5) % Neut % (Auto) 56.5 (45.5-73.1) % Lymph % (Auto) 29.7 (18.3-44.2) % Burnet % (Auto) 10.1 H (2.6-8.5) % Eos % (Auto) 2.9 (0-4.4) % Baso % (Auto) 0.5 (0.2-1.2) % Lymph # (Auto) 2.17 (0.9-3.2) K/mm3 Burnet # (Auto) 0.7 H (0.1-0.6) K/mm3 Eos # (Auto) 0.2 (0-0.3) K/mm3 Baso # (Auto) 0.0 (0.0-0.1) K/mm3 Abs Immat Gran (auto) 0.02 (0.00-0.031) K/mm3 Absolute Neuts (auto) 4.1 (1.3-6.7) K/mm3 Absolute Nucleated RBC 0.000 (0.0-0.012) K/mm3 Nucleated RBC % 0.0 (0.0-0.2) % Sodium 135 L (137-145) mmol/L Potassium 4.2 (3.4-5.0) mmol/L Chloride 102 (98-107) mmol/L Carbon Dioxide 23 (22-30) mmol/L Anion Gap 10 (4-12) mmol/L BUN 21 H (9-20) mg/dL Creatinine 1.24 (0.7-1.3) mg/dL Estim Creat Clear Calc Not Reportable Estimated GFR 57 L (59 - ) Glucose 119 H (65-110) mg/dL Calcium 10.2 (8.4-10.2) mg/dL Total Bilirubin 0.9 (0.2-1.3) mg/dL AST 39 (17-59) U/L ALT 29 (6-50) U/L Alkaline Phosphatase 51 (38-126) U/L Total Protein 7.4 (6.3-8.2) g/dL Albumin 4.4 (3.5-5.1) g/dL Urine Color Yellow (Yellow) Urine Appearance Clear (Clear) Urine pH 6.0 (5.0-9.0) Ur Specific [place] 1.012 (1.001-1.035) Urine Protein Negative (Negative) mg/dL Urine Glucose (UA) Negative (Negative) mg/dL Urine Ketones Negative (Negative) mg/dL Ur Blood (Man) Negative (Negative) Urine Nitrate Negative (Negative) Urine Bilirubin Negative (Negative) Urine Urobilinogen 0.2 (<2.0) mg/dL Leukocyte Esterase Rfl Negative (Negative) SARAH/UL Acetaminophen < 10 L (10-30) ug/mL <Radha Rodarte MD - Last Filed: 09/02/24 23:20> Lab Results 09/02/24 Range/Units 21:07 WBC 7.3 (4.5-10.0) K/mm3 RBC 4.53 L (4.6-6.20) M/mm3 Hgb 14.1 (14.0-18.0) g/dL Hct 42.5 (42.0-52.0) % MCV 93.8 (80-100) fl MCH 31.1 (26-34) pg MCHC 33.2 (32-36) g/dl RDW 12.9 (11.5-14.5) % Plt Count 234 (150-375) k/mm3 MPV 10.1 (7.4-10.4) fl Immature Gran % (Auto) 0.3 (0-0.5) % Neut % (Auto) 56.5 (45.5-73.1) % Lymph % (Auto) 29.7 (18.3-44.2) % Burnet % (Auto) 10.1 H (2.6-8.5) % Eos % (Auto) 2.9 (0-4.4) % Baso % (Auto) 0.5 (0.2-1.2) % Lymph # (Auto) 2.17 (0.9-3.2) K/mm3 Burnet # (Auto) 0.7 H (0.1-0.6) K/mm3 Eos # (Auto) 0.2 (0-0.3) K/mm3 Baso # (Auto) 0.0 (0.0-0.1) K/mm3 Abs Immat Gran (auto) 0.02 (0.00-0.031) K/mm3 Absolute Neuts (auto) 4.1 (1.3-6.7) K/mm3 Absolute Nucleated RBC 0.000 (0.0-0.012) K/mm3 Nucleated RBC % 0.0 (0.0-0.2) % Sodium 135 L (137-145) mmol/L Potassium 4.2 (3.4-5.0) mmol/L Chloride 102 (98-107) mmol/L Carbon Dioxide 23 (22-30) mmol/L Anion Gap 10 (4-12) mmol/L BUN 21 H (9-20) mg/dL Creatinine 1.24 (0.7-1.3) mg/dL Estim Creat Clear Calc Not Reportable Estimated GFR 57 L (59 - ) Glucose 119 H (65-110) mg/dL Calcium 10.2 (8.4-10.2) mg/dL Total Bilirubin 0.9 (0.2-1.3) mg/dL AST 39 (17-59) U/L ALT 29 (6-50) U/L Alkaline Phosphatase 51 (38-126) U/L Total Protein 7.4 (6.3-8.2) g/dL Albumin 4.4 (3.5-5.1) g/dL Urine Color Yellow (Yellow) Urine Appearance Clear (Clear) Urine pH 6.0 (5.0-9.0) Ur Specific [place] 1.012 (1.001-1.035) Urine Protein Negative (Negative) mg/dL Urine Glucose (UA) Negative (Negative) mg/dL Urine Ketones Negative (Negative) mg/dL Ur Blood (Man) Negative (Negative) Urine Nitrate Negative (Negative) Urine Bilirubin Negative (Negative) Urine Urobilinogen 0.2 (<2.0) mg/dL Leukocyte Esterase Rfl Negative (Negative) SARAH/UL Acetaminophen < 10 L (10-30) ug/mL <Kody Helton MD - Last Filed: 09/02/24 23:51> Imaging Data Radiologist's impression: Impressions Abdomen/Pelvis CT 09/02/24 22:13 IMPRESSION: No obstructive uropathy. Nonobstructing 3 mm right renal stone. Simple cyst exophytic from the lower pole of the left kidney. <Radha Rodarte MD - Last Filed: 09/02/24 23:20> Discharge Plan Discharge Clinical Impression: Cyst of left kidney, Left flank pain, Kidney stone on left side <Radha Rodarte MD - Last Filed: 09/02/24 23:20> Patient Disposition: Still a Patient <Radha Rodarte MD - Last Filed: 09/02/24 23:20> Condition: Stable <Radha Rodarte MD - Last Filed: 09/02/24 23:20> Additional Instructions: Ibuprofen for pain control, Flexeril for muscle spasm and Worley as needed for additional pain control. Continue to have close follow-up with your primary care physician. If you have any worsening symptoms then please call or return to the emergency department. <Radha Rodarte MD - Last Filed: 09/02/24 23:20> Patient Language: Divehi <Radha Rodarte MD - Last Filed: 09/02/24 23:20> Prescriptions: New cyclobenzaprine 10 mg tablet 10 mg PO BID PRN (Reason: muscle spasm) Qty: 14 0RF hydrocodone-acetaminophen 5-325 mg tablet 1 tablet PO Q12H PRN (Reason: pain) Qty: 14 0RF No Action aspirin 81 mg tablet 81 mg PO DAILY mecobalamin (vitamin B12) 500 mcg tablet,chewable PO amlodipine 5 mg tablet 5 mg PO DAILY Qty: 90 2RF tadalafil 20 mg tablet 40 mg PO DAILY PRN (Reason: sexual activity) Qty: 90 2RF Rx Instructions: administer approximately 30min before sexual activity; do not use more than 1 dose per 24hrs alprazolam 0.5 mg tablet 0.25 mg PO QHS PRN (Reason: sleep) Qty: 30 2RF triamcinolone acetonide 0.1 % ointment 1 applic topical TID Qty: 80 0RF rosuvastatin 20 mg tablet See Rx Instructions .ROUTE .COMPLEX Qty: 90 2RF Dose Instruction: TAKE 1 TABLET BY MOUTH DAILY Rx Instructions: TAKE 1 TABLET BY MOUTH DAILY Rybelsus 7 mg tablet 7 mg PO DAILY Qty: 90 2RF levothyroxine 125 mcg tablet See Rx Instructions .ROUTE .COMPLEX Qty: 90 2RF Dose Instruction: TAKE 1 TABLET BY MOUTH DAILY Rx Instructions: TAKE 1 TABLET BY MOUTH DAILY Entresto 24-26 mg tablet 1 tablet PO BID Qty: 180 2RF carvedilol 6.25 mg tablet 6.25 mg PO BID Qty: 180 2RF Rx Instructions: must administer with a meal/food <Radha Rodarte MD - Last Filed: 09/02/24 23:20> Follow-up/Referrals: Yomi Reddy MD [Primary Care Provider] - <Radha Rodarte MD - Last Filed: 09/02/24 23:20>
[2024-09-02 21:40] LABS: Add Urine Microscopic? NO; Appearance Urine Clear (Clear); Basophils Percent Auto 0.5 % (0.2-1.2); Bilirubin Urine Negative (Negative); Blood Urine Negative (Negative); Color Urine Yellow (Yellow); Eosinophils Absolute Auto 0.2 K/mm3 (0-0.3); Eosinophils Percent Auto 2.9 % (0-4.4); Glucose Urine UA Negative (Negative); Hematocrit 42.5 % (42.0-52.0); Hemoglobin 14.1 g/dL (14.0-18.0); Immature Granulocyte Absolute 0.02 K/mm3 (0.00-0.031); Immature Granulocyte Percent A 0.3 % (0-0.5); Ketones Urine Negative (Negative); Leukocyte Esterase Ur Negative LEU/UL (Negative); Lymphocytes Absolute Auto 2.17 K/mm3 (0.9-3.2); Lymphocytes Percent Auto 29.7 % (18.3-44.2); Mean Corpuscular HGB Conc 33.2 g/dl (32-36); Mean Corpuscular Hemoglobin 31.1 pg (26-34); Mean Corpuscular Volume 93.8 fl (80-100); Mean Platelet Volume 10.1 fl (7.4-10.4); Monocytes Absolute Auto 0.7 K/mm3 (0.1-0.6); Monocytes Percent Auto 10.1 % (2.6-8.5); Neutrophils Absolute Auto 4.1 K/mm3 (1.3-6.7); Neutrophils Percent Auto 56.5 % (45.5-73.1); Nitrate Urine Negative (Negative); Platelet Count Result 234 k/mm3 (150-375); Protein Urine Negative (Negative); Red Blood Count 4.53 M/mm3 (4.6-6.20); Red Cell Distribution Width 12.9 % (11.5-14.5); Specific Grav Ur 1.012 (1.001-1.035); Urobilinogen Urine 0.2 mg/dL (<2.0); White Blood Count 7.3 K/mm3 (4.5-10.0)
[2024-09-02] MEDS: MORPHINE SULFATE (*CRX) 4 MG/ML INJ IV PUSH (21:46)
[2024-09-02] MEDS: ONDANSETRON INJ 4 MG/2 ML VIAL IV PUSH (21:46)
[2024-09-02 21:50] LABS: Alanine Aminotransferase 29 U/L (6-50); Albumin Level 4.4 g/dL (3.5-5.1); Alkaline Phosphatase 51 U/L (38-126); Anion Gap 10 mmol/L (4-12); Aspartate Amino Transferase 39 U/L (17-59); Bilirubin,Total 0.9 mg/dL (0.2-1.3); Blood Urea Nitrogen 21 mg/dL (9-20); Calcium 10.2 mg/dL (8.4-10.2); Carbon Dioxide 23 mmol/L (22-30); Chloride 102 mmol/L (98-107); Estimated Glomerular Filt Rate 57; Glucose 119 mg/dL (65-110); Potassium 4.2 mmol/L (3.4-5.0); Sodium 135 mmol/L (137-145); Total Protein 7.4 g/dL (6.3-8.2)
[2024-09-02 22:00] LABS: Acetaminophen < 10 ug/mL (10-30)
[2024-09-02] MEDS: KETOROLAC 15 MG/ML VIAL (*BKC) IV PUSH (23:20)
[2024-09-02] MEDS: CYCLOBENZAPRINE HCL 10 MG TABLET PO (23:59)
[2024-09-02] MEDS: HYDROcodone/acetaminophen (*CRX) 5-325 MG TABLET 1 TAB PO (23:59)
[2024-09-03 00:09] VITALS: BP 154/85; PULSE 58; RESP 15; O2SAT 94
[2024-09-03 00:10] VITALS: BP 151/77; PULSE 61; RESP 17; O2SAT 96
== END 2024-09-03 00:11 | disposition home or self-care (01) ==
PROVIDERS: Emergency Medicine; Emergency Provider Student in an Organized Health Care Education/Training Program; PCP Emergency Medicine
DX: N28.1 Cyst of kidney, acquired (principal); N20.0 Calculus of kidney; R10.9 Unspecified abdominal pain; I12.9 Hypertensive chronic kidney disease with stage 1 through stage 4 chronic kidney disease, or unspecified chronic kidney disease; N18.30 Chronic kidney disease, stage 3 unspecified; E55.9 Vitamin D deficiency, unspecified; E78.5 Hyperlipidemia, unspecified; E03.9 Hypothyroidism, unspecified; E53.8 Deficiency of other specified B group vitamins; M17.0 Bilateral primary osteoarthritis of knee; R73.03 Prediabetes; Z96.651 Presence of right artificial knee joint; Z98.1 Arthrodesis status; Z85.51 Personal history of malignant neoplasm of bladder; Z87.891 Personal history of nicotine dependence; Z79.899 Other long term (current) drug therapy
CPT/HCPCS: 36415; 74176; 74177; 74178; 80053; 80143; 81003; 85025; 96374; 96375; 99284; A9270; J1885; J2270; J2405; Q9967